=== PATIENT | male | born 1955 | race Caucasian/White ===

== ENCOUNTER 2016-08-18 10:55 | Inpatient (IN) | payer OTHER ==
[2016-08-18 12:30] VITALS: BMI 26.9
[2016-08-18] MEDS ORDERED: MAGNESIUM CITRATE 300 ML BOTTLE PO PRN (14:58)
[2016-08-18] MEDS ORDERED: guaiFENesin/D-METHORPHAN HB 10 ML UNIT-DOSE CUPS PO PRN (14:58)
[2016-08-18] MEDS ORDERED: MENTHOL/PHENOL 1 EACH UD MM PRN (14:58)
[2016-08-18] MEDS ORDERED: NICOTINE POLACRILEX 4 MG GUM BUC PRN (14:58)
[2016-08-18] MEDS ORDERED: MAG HYDROX/AL HYDROX/SIMETH 30 ML UNIT-DOSE CUP PO PRN (14:58)
[2016-08-18] MEDS ORDERED: MAGNESIUM HYDROX 2400MG/30ML ORAL SUSPENSION 30 ML CUP PO PRN (14:58)
[2016-08-18] MEDS ORDERED: P-EPHED 60MG/TRIPROLIDI 2.5MG TABLET PO PRN (14:58)
[2016-08-18] MEDS ORDERED: IBUPROFEN 400 MG TABLET (FP) PO PRN (14:58)
[2016-08-18] MEDS ORDERED: LOPERAMIDE HCL 2 MG CAPSULE PO PRN (14:58)
[2016-08-18] MEDS ORDERED: ACETAMINOPHEN 325 MG TABLET (FP) PO PRN (14:58)
--- NOTE | 2016-08-18 14:58 | HP ---
ANDREAS HERNANDEZ Rehab Assess/Revision - Admission History Admitted to Rehab from: [facility] [place] Date of Admission to Rehab: 08/18/16 - Vital signs Vital Signs: Vital Signs Period Temp Pulse Resp BP Sys/Umanzor Pulse Ox Last 24 Hr 96.1 F 70 20 137/77 - Findings Detox History & Physical reviewed: Yes (h/o rt hip OA , htn, svt , nicotine dep) Concur with findings: Yes Comments/Additional Findings: pt d/c'ed on 08/13/16.
[2016-08-18] MEDS ORDERED: LIDOCAINE 5% TOPICAL PATCH TP ONE (16:30)
[2016-08-18] MEDS: IBUPROFEN 600 MG TABLET (FP) PO PRN (19:37)
[2016-08-18] MEDS: CYCLOBENZAPRINE HCL 10 MG TABLET (FP) PO PRN (19:38)
[2016-08-18] MEDS: THIAMINE HCL 100 MG TABLET (FP) PO SCH (23:12)
--- NOTE | 2016-08-19 08:01 | HP ---
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 Noted history of bilateral inguinal hernia repair and splenectomy due to trauma. Smokes 5 cigarettes daily Psychiatric History: Denies previous psychiatric history but reports being treated with Valium for anxiety and insomnia while in inpatient rehab in the past. Physical/Sexual Abuse/Trauma History: Denies history of physical, sexual abuse as well as DV relationship Additional Comment: Reports history of multiple arrests including 6 felony convictions. Denies being on parole/probation at present Vital Signs: Vital Signs - 24 hr 08/18/16 08/19/16 08/19/16 12:22 00:30 06:54 Temperature 96.1 F L 98.3 F Pulse Rate 70 73 Respiratory 20 20 18 Rate Blood Pressure 137/77 146/95 Allergies/Adverse Reactions: Allergies Allergy/AdvReac Type Severity Reaction Status Date / Time No Known Allergies Allergy Verified 08/18/16 14:48 Date of last physical exam: 08/13/16 Concur with the findings of this exam: Yes - Substance Abuse/Tx History Hx Alcohol Use: Yes Hx Substance Use: Yes Substance Use Type: Alcohol (Started drinking alcohol at age 14, consumes half pint of vodka & 2 cans of beer daily. Last drink on 08/18/16), Cocaine (Started using cocaine at age 35, consumes $50 worth 1-2 times weekly. Last used on ) Hx Substance Use Treatment: Yes (Multiple previous inpt detox @ [facility] & rehab @ [facility]) - Admission Criteria Previous failed treatment: Yes Poor recovery environment: Yes Comorbidities: Yes Lacks judgement: Yes Mental Status Exam - Mental Status Exam Alert and Oriented to: Time, Place, Person Cognitive Function: Fair Patient Appearance: Disheveled Mood: Depressed, Irritable Affect: Constricted Patient Behavior: Cooperative Speech Pattern: Clear Voice Loudness: Normal Thought Process: Intact Thought Disorder: Present Hallucinations: Denies Suicidal Ideation: Denies Homicidal Ideation: Denies Insight/Judgement: Fair Sleep: Poorly Appetite: Good Muscle strength/Tone: Normal Gait/Station: Normal Psychiatric Findings - Problem List ([place] 1, 2,3) (1) Alcohol dependence with uncomplicated withdrawal Current Visit: No Status: Chronic (2) Cocaine dependence, uncomplicated Current Visit: No Status: Acute (3) Nicotine dependence Current Visit: No Status: Chronic Qualifiers: Nicotine product type: cigarettes Substance use status: uncomplicated Qualified Code(s): F17.210 - Nicotine dependence, cigarettes, uncomplicated (4) Substance induced mood disorder Current Visit: Yes Status: Acute (5) Atrial fibrillation with rapid ventricular response Current Visit: No Status: Acute (6) Essential hypertension Current Visit: No Status: Chronic (7) Hip pain, right Current Visit: No Status: Chronic (8) Hepatitis C Current Visit: Yes Status: Acute Qualifiers: Viral hepatitis chronicity: chronic Hepatic coma status: without hepatic coma Qualified Code(s): B18.2 - Chronic viral hepatitis C - Initial Treatment Plan Initial Treatment Plan: 1) Start Trazadone 100 mg po HS. 2) Monitor progress
[2016-08-19] MEDS: LIDOCAINE 5% TOPICAL PATCH TP SCH (09:51)
[2016-08-19] MEDS: PRENATAL VITAMINS W/ FOLIC ACID TABLET (FP) PO SCH (09:51)
[2016-08-19] MEDS: CYCLOBENZAPRINE HCL 10 MG TABLET (FP) PO PRN ×2 (14:19→21:26)
[2016-08-19] MEDS: IBUPROFEN 600 MG TABLET (FP) PO PRN (14:19)
[2016-08-19] MEDS: traZODone HCL 100 MG TABLET (FP) PO SCH (21:26)
[2016-08-19] MEDS: THIAMINE HCL 100 MG TABLET (FP) PO SCH (21:26)
[2016-08-20] MEDS: PRENATAL VITAMINS W/ FOLIC ACID TABLET (FP) PO SCH (10:12)
[2016-08-20] MEDS: CYCLOBENZAPRINE HCL 10 MG TABLET (FP) PO PRN ×2 (10:13→21:33)
[2016-08-20] MEDS: IBUPROFEN 600 MG TABLET (FP) PO PRN ×2 (10:13→21:33)
[2016-08-20] MEDS: LIDOCAINE 5% TOPICAL PATCH TP SCH (10:14)
[2016-08-20] MEDS: THIAMINE HCL 100 MG TABLET (FP) PO SCH (21:33)
[2016-08-20] MEDS: traZODone HCL 100 MG TABLET (FP) PO SCH (21:34)
[2016-08-21] MEDS: IBUPROFEN 600 MG TABLET (FP) PO PRN ×2 (10:19→21:36)
[2016-08-21] MEDS: CYCLOBENZAPRINE HCL 10 MG TABLET (FP) PO PRN ×2 (10:19→21:36)
[2016-08-21] MEDS: PRENATAL VITAMINS W/ FOLIC ACID TABLET (FP) PO SCH (10:21)
[2016-08-21] MEDS: LIDOCAINE 5% TOPICAL PATCH TP SCH (10:21)
[2016-08-21] MEDS: THIAMINE HCL 100 MG TABLET (FP) PO SCH (21:36)
[2016-08-21] MEDS: traZODone HCL 100 MG TABLET (FP) PO SCH (21:36)
[2016-08-22] MEDS: PRENATAL VITAMINS W/ FOLIC ACID TABLET (FP) PO SCH (10:23)
[2016-08-22] MEDS: LIDOCAINE 5% TOPICAL PATCH TP SCH (10:23)
[2016-08-22] MEDS: CYCLOBENZAPRINE HCL 10 MG TABLET (FP) PO PRN ×2 (10:24→21:24)
[2016-08-22] MEDS: IBUPROFEN 600 MG TABLET (FP) PO PRN ×2 (10:25→21:24)
[2016-08-22] MEDS: THIAMINE HCL 100 MG TABLET (FP) PO SCH (21:22)
[2016-08-22] MEDS: traZODone HCL 100 MG TABLET (FP) PO SCH (21:22)
[2016-08-23] MEDS: IBUPROFEN 600 MG TABLET (FP) PO PRN ×2 (10:11→21:43)
[2016-08-23] MEDS: PRENATAL VITAMINS W/ FOLIC ACID TABLET (FP) PO SCH (10:11)
[2016-08-23] MEDS: LIDOCAINE 5% TOPICAL PATCH TP SCH (10:11)
[2016-08-23] MEDS: CYCLOBENZAPRINE HCL 10 MG TABLET (FP) PO PRN ×2 (10:12→21:43)
[2016-08-23] MEDS: traZODone HCL 100 MG TABLET (FP) PO SCH (21:42)
[2016-08-23] MEDS: THIAMINE HCL 100 MG TABLET (FP) PO SCH (21:42)
[2016-08-24] MEDS: PRENATAL VITAMINS W/ FOLIC ACID TABLET (FP) PO SCH (10:04)
[2016-08-24] MEDS: IBUPROFEN 600 MG TABLET (FP) PO PRN ×2 (10:05→21:31)
[2016-08-24] MEDS: LIDOCAINE 5% TOPICAL PATCH TP SCH (10:05)
[2016-08-24] MEDS: CYCLOBENZAPRINE HCL 10 MG TABLET (FP) PO PRN ×2 (10:06→21:31)
[2016-08-24] MEDS: THIAMINE HCL 100 MG TABLET (FP) PO SCH (21:31)
[2016-08-24] MEDS: diphenhydrAMINE HCL 50 MG CAPSULE PO PRN (21:31)
[2016-08-24] MEDS: traZODone HCL 100 MG TABLET (FP) PO SCH (21:31)
[2016-08-25] MEDS: PRENATAL VITAMINS W/ FOLIC ACID TABLET (FP) PO SCH (10:18)
[2016-08-25] MEDS: IBUPROFEN 600 MG TABLET (FP) PO PRN ×2 (10:19→21:36)
[2016-08-25] MEDS: CYCLOBENZAPRINE HCL 10 MG TABLET (FP) PO PRN ×2 (10:19→21:35)
[2016-08-25] MEDS: LIDOCAINE 5% TOPICAL PATCH TP SCH (10:19)
[2016-08-25] MEDS: THIAMINE HCL 100 MG TABLET (FP) PO SCH (21:35)
[2016-08-25] MEDS: traZODone HCL 100 MG TABLET (FP) PO SCH (21:36)
[2016-08-25] MEDS: diphenhydrAMINE HCL 50 MG CAPSULE PO PRN (21:36)
[2016-08-26] MEDS: IBUPROFEN 600 MG TABLET (FP) PO PRN ×2 (10:17→21:50)
[2016-08-26] MEDS: CYCLOBENZAPRINE HCL 10 MG TABLET (FP) PO PRN ×2 (10:17→21:49)
[2016-08-26] MEDS: LIDOCAINE 5% TOPICAL PATCH TP SCH (10:18)
[2016-08-26] MEDS: PRENATAL VITAMINS W/ FOLIC ACID TABLET (FP) PO SCH (10:19)
[2016-08-26] MEDS: diphenhydrAMINE HCL 50 MG CAPSULE PO PRN (21:49)
[2016-08-26] MEDS: THIAMINE HCL 100 MG TABLET (FP) PO SCH (21:49)
[2016-08-26] MEDS: traZODone HCL 100 MG TABLET (FP) PO SCH (21:49)
[2016-08-27] MEDS: CYCLOBENZAPRINE HCL 10 MG TABLET (FP) PO PRN ×2 (10:25→21:28)
[2016-08-27] MEDS: IBUPROFEN 600 MG TABLET (FP) PO PRN ×2 (10:25→21:28)
[2016-08-27] MEDS: PRENATAL VITAMINS W/ FOLIC ACID TABLET (FP) PO SCH (10:25)
[2016-08-27] MEDS: LIDOCAINE 5% TOPICAL PATCH TP SCH (10:26)
[2016-08-27] MEDS: THIAMINE HCL 100 MG TABLET (FP) PO SCH (21:27)
[2016-08-27] MEDS: traZODone HCL 100 MG TABLET (FP) PO SCH (21:27)
[2016-08-27] MEDS: diphenhydrAMINE HCL 50 MG CAPSULE PO PRN (21:28)
[2016-08-28] MEDS: PRENATAL VITAMINS W/ FOLIC ACID TABLET (FP) PO SCH (10:20)
[2016-08-28] MEDS: IBUPROFEN 600 MG TABLET (FP) PO PRN (10:21)
[2016-08-28] MEDS: CYCLOBENZAPRINE HCL 10 MG TABLET (FP) PO PRN ×2 (10:21→21:46)
[2016-08-28] MEDS: LIDOCAINE 5% TOPICAL PATCH TP SCH (11:21)
[2016-08-28] MEDS: THIAMINE HCL 100 MG TABLET (FP) PO SCH (21:45)
[2016-08-28] MEDS: diphenhydrAMINE HCL 50 MG CAPSULE PO PRN (21:45)
[2016-08-28] MEDS: traZODone HCL 100 MG TABLET (FP) PO SCH (21:45)
[2016-08-29] MEDS: LIDOCAINE 5% TOPICAL PATCH TP SCH (11:04)
[2016-08-29] MEDS: PRENATAL VITAMINS W/ FOLIC ACID TABLET (FP) PO SCH (11:04)
[2016-08-29] MEDS: CYCLOBENZAPRINE HCL 10 MG TABLET (FP) PO PRN ×2 (11:06→21:27)
[2016-08-29] MEDS: IBUPROFEN 600 MG TABLET (FP) PO PRN ×2 (11:07→21:28)
[2016-08-29] MEDS: THIAMINE HCL 100 MG TABLET (FP) PO SCH (21:27)
[2016-08-29] MEDS: traZODone HCL 100 MG TABLET (FP) PO SCH (21:28)
[2016-08-29] MEDS: diphenhydrAMINE HCL 50 MG CAPSULE PO PRN (21:28)
[2016-08-30] MEDS: PRENATAL VITAMINS W/ FOLIC ACID TABLET (FP) PO SCH (10:18)
[2016-08-30] MEDS: LIDOCAINE 5% TOPICAL PATCH TP SCH (10:18)
[2016-08-30] MEDS: IBUPROFEN 600 MG TABLET (FP) PO PRN ×2 (10:19→21:29)
[2016-08-30] MEDS: CYCLOBENZAPRINE HCL 10 MG TABLET (FP) PO PRN (21:28)
[2016-08-30] MEDS: THIAMINE HCL 100 MG TABLET (FP) PO SCH (21:28)
[2016-08-30] MEDS: diphenhydrAMINE HCL 50 MG CAPSULE PO PRN (21:29)
[2016-08-30] MEDS: traZODone HCL 100 MG TABLET (FP) PO SCH (21:29)
[2016-08-31] MEDS: PRENATAL VITAMINS W/ FOLIC ACID TABLET (FP) PO SCH (10:15)
[2016-08-31] MEDS: CYCLOBENZAPRINE HCL 10 MG TABLET (FP) PO PRN ×2 (10:16→21:37)
[2016-08-31] MEDS: IBUPROFEN 600 MG TABLET (FP) PO PRN ×2 (10:16→21:37)
[2016-08-31] MEDS: LIDOCAINE 5% TOPICAL PATCH TP SCH (10:55)
[2016-08-31] MEDS: traZODone HCL 100 MG TABLET (FP) PO SCH (21:35)
[2016-08-31] MEDS: THIAMINE HCL 100 MG TABLET (FP) PO SCH (21:35)
[2016-08-31] MEDS: diphenhydrAMINE HCL 50 MG CAPSULE PO PRN (21:35)
[2016-09-01] MEDS: IBUPROFEN 600 MG TABLET (FP) PO PRN ×2 (10:29→21:30)
[2016-09-01] MEDS: CYCLOBENZAPRINE HCL 10 MG TABLET (FP) PO PRN ×2 (10:29→21:30)
[2016-09-01] MEDS: LIDOCAINE 5% TOPICAL PATCH TP SCH (10:31)
[2016-09-01] MEDS: PRENATAL VITAMINS W/ FOLIC ACID TABLET (FP) PO SCH (10:31)
[2016-09-01] MEDS: THIAMINE HCL 100 MG TABLET (FP) PO SCH (21:28)
[2016-09-01] MEDS: traZODone HCL 100 MG TABLET (FP) PO SCH (21:29)
[2016-09-01] MEDS: diphenhydrAMINE HCL 50 MG CAPSULE PO PRN (21:29)
[2016-09-02] MEDS: CYCLOBENZAPRINE HCL 10 MG TABLET (FP) PO PRN ×2 (10:17→21:28)
[2016-09-02] MEDS: IBUPROFEN 600 MG TABLET (FP) PO PRN ×2 (10:17→21:29)
[2016-09-02] MEDS: PRENATAL VITAMINS W/ FOLIC ACID TABLET (FP) PO SCH (10:17)
[2016-09-02] MEDS: LIDOCAINE 5% TOPICAL PATCH TP SCH (11:02)
[2016-09-02] MEDS: THIAMINE HCL 100 MG TABLET (FP) PO SCH (21:28)
[2016-09-02] MEDS: diphenhydrAMINE HCL 50 MG CAPSULE PO PRN (21:28)
[2016-09-02] MEDS: traZODone HCL 100 MG TABLET (FP) PO SCH (21:29)
[2016-09-03] MEDS: PRENATAL VITAMINS W/ FOLIC ACID TABLET (FP) PO SCH (10:14)
[2016-09-03] MEDS: CYCLOBENZAPRINE HCL 10 MG TABLET (FP) PO PRN ×2 (10:14→22:10)
[2016-09-03] MEDS: IBUPROFEN 600 MG TABLET (FP) PO PRN ×2 (10:14→22:10)
[2016-09-03] MEDS: LIDOCAINE 5% TOPICAL PATCH TP SCH (10:15)
[2016-09-03] MEDS: THIAMINE HCL 100 MG TABLET (FP) PO SCH (22:09)
[2016-09-03] MEDS: traZODone HCL 100 MG TABLET (FP) PO SCH (22:09)
[2016-09-04] MEDS: IBUPROFEN 600 MG TABLET (FP) PO PRN ×2 (10:13→22:01)
[2016-09-04] MEDS: CYCLOBENZAPRINE HCL 10 MG TABLET (FP) PO PRN (10:13)
[2016-09-04] MEDS: PRENATAL VITAMINS W/ FOLIC ACID TABLET (FP) PO SCH (10:13)
[2016-09-04] MEDS: LIDOCAINE 5% TOPICAL PATCH TP SCH (10:14)
[2016-09-04] MEDS: traZODone HCL 100 MG TABLET (FP) PO SCH (22:01)
[2016-09-04] MEDS: THIAMINE HCL 100 MG TABLET (FP) PO SCH (22:01)
[2016-09-04] MEDS: diphenhydrAMINE HCL 50 MG CAPSULE PO PRN (22:02)
[2016-09-05] MEDS: IBUPROFEN 600 MG TABLET (FP) PO PRN ×2 (10:17→22:02)
[2016-09-05] MEDS: CYCLOBENZAPRINE HCL 10 MG TABLET (FP) PO PRN ×2 (10:17→22:02)
[2016-09-05] MEDS: LIDOCAINE 5% TOPICAL PATCH TP SCH (10:18)
[2016-09-05] MEDS: PRENATAL VITAMINS W/ FOLIC ACID TABLET (FP) PO SCH (10:18)
[2016-09-05] MEDS: THIAMINE HCL 100 MG TABLET (FP) PO SCH (22:01)
[2016-09-05] MEDS: traZODone HCL 100 MG TABLET (FP) PO SCH (22:02)
[2016-09-05] MEDS: diphenhydrAMINE HCL 50 MG CAPSULE PO PRN (22:02)
[2016-09-06] MEDS: PRENATAL VITAMINS W/ FOLIC ACID TABLET (FP) PO SCH (10:09)
[2016-09-06] MEDS: LIDOCAINE 5% TOPICAL PATCH TP SCH (10:09)
[2016-09-06] MEDS: IBUPROFEN 600 MG TABLET (FP) PO PRN ×2 (10:10→21:49)
[2016-09-06] MEDS: CYCLOBENZAPRINE HCL 10 MG TABLET (FP) PO PRN ×2 (10:10→21:49)
[2016-09-06] MEDS: diphenhydrAMINE HCL 50 MG CAPSULE PO PRN (21:48)
[2016-09-06] MEDS: THIAMINE HCL 100 MG TABLET (FP) PO SCH (21:48)
[2016-09-06] MEDS: traZODone HCL 100 MG TABLET (FP) PO SCH (21:48)
--- NOTE | 2016-09-07 06:56 | PN ---
Psychiatric Progress Note Vital Signs: Vital Signs Period Temp Pulse Resp BP Sys/Umanzor Pulse Ox Last 24 Hr 97.6 F 62 18-18 147/89 Date of Session: 09/07/16 Chief Complaint:: Psychiatrist Discharge Note HPI: Patient addressing Alcohol and Cocaine Dependence comorbid with Nicotine Dependence and Substance-Induced Mood Disorder ROS: HTN, Osteoarthritis right hip were medically managed Current Medications: Active Medications Generic Name Dose Route Start Last Admin Trade Name Freq PRN Reason Stop Dose Admin Acetaminophen 650 mg 08/18/16 14:58 Tylenol - PO Q4H PRN FEVER OR PAIN Al Hydroxide/Mg Hydroxide 30 ml 08/18/16 14:58 Mylanta Oral Suspension - PO Q6H PRN DYSPEPSIA Cyclobenzaprine HCl 10 mg 08/18/16 15:04 09/06/16 21:49 Flexeril - PO 10 mg TID PRN Administration MUSCLE SPASMS Diphenhydramine HCl 50 mg 08/18/16 14:58 09/06/16 21:48 Benadryl - PO 50 mg HSMR1 PRN Administration FOR ITCHING Eucalyptus/Menthol/Phenol/Sorbitol 1 each 08/18/16 14:58 Cepastat Lozenge - MM Q4H PRN SORE THROAT Guaifenesin 10 ml 08/18/16 14:58 Robitussin Dm - PO Q6H PRN COUGH Ibuprofen 600 mg 08/18/16 15:04 09/06/16 21:49 Motrin - PO 600 mg Q6H PRN Administration PAIN Lidocaine 1 patch 08/19/16 10:00 09/06/16 10:09 Lidoderm Patch - TP Not Given DAILY ANTELMO Loperamide HCl 4 mg 08/18/16 14:58 Imodium - PO Q6H PRN DIARRHEA Magnesium Hydroxide 30 ml 08/18/16 14:58 Milk Of Magnesia - PO DAILY PRN CONSTIPATION Nicotine Polacrilex 4 mg 08/18/16 14:58 Nicorette Gum - BUC Q2H PRN NICOTINE REPLACEMENT RX Multivit/Folic Acid/Iron 1 tab 08/19/16 10:00 09/06/16 10:09 Vitamins (Sjr) - PO 1 tab DAILY ANTELMO Administration Pseudoephedrine/Triprolidine 1 combo 08/18/16 14:58 Actifed - PO TID PRN NASAL CONGESTION Thiamine HCl 100 mg 08/18/16 22:00 09/06/16 21:48 Vitamin B1 - PO 100 mg HS ANTELMO Administration Trazodone HCl 100 mg 08/19/16 22:00 09/06/16 21:48 Desyrel - PO 100 mg HS ANTELMO Administration Current Side Effect: No Lab tests ordered: Yes Lab tests reviewed: Yes Provider note:: Patient has completed this program today. He has met his treatment goals and will continue to address his issues in outpatient treatment at [facility]. He verbalized understanding of the negative consequences of his addiction and from his participation in this program, he has learned the importance of having a network in order to maintain abstinent. He responded well to Trazadone 100 mg po HS for insomnia. Script for 30 days supply of that medication is electronically transmitted to [facility] at [address] [place] [address]. He is stable for discharge today Total face to face time:: 35 Mental Status Exam - Mental Status Exam Alert and Oriented to: Time, Place, Person Cognitive Function: Fair Patient Appearance: Well Groomed Mood: Hopeful, Euthymic Affect: Appropriate Patient Behavior: Cooperative Speech Pattern: Clear Voice Loudness: Normal Thought Process: Intact Thought Disorder: Not Present Hallucinations: Denies Suicidal Ideation: Denies Homicidal Ideation: Denies Insight/Judgement: Fair Sleep: Fair Appetite: Good Muscle strength/Tone: Normal Gait/Station: Normal Psychiatric Treatment Plan - Problem List (1) Alcohol dependence with uncomplicated withdrawal Current Visit: No (2) Cocaine dependence, uncomplicated Current Visit: No (3) Nicotine dependence Current Visit: No Qualifiers: Nicotine product type: cigarettes Substance use status: uncomplicated Qualified Code(s): F17.210 - Nicotine dependence, cigarettes, uncomplicated (4) Substance induced mood disorder Current Visit: Yes (5) Atrial fibrillation with rapid ventricular response Current Visit: No (6) Essential hypertension Current Visit: No (7) Hip pain, right Current Visit: No (8) Hepatitis C Current Visit: Yes Qualifiers: Viral hepatitis chronicity: chronic Hepatic coma status: without hepatic coma Qualified Code(s): B18.2 - Chronic viral hepatitis C Initial treatment plan: Patient is discharged today and referred to [facility] for outpatient treatment
[2016-09-07 07:14] VITALS: BP 171/100; PULSE 69; TEMP 98.5
[2016-09-07] MEDS: LIDOCAINE 5% TOPICAL PATCH TP SCH (10:01)
[2016-09-07] MEDS: PRENATAL VITAMINS W/ FOLIC ACID TABLET (FP) PO SCH (10:01)
[2016-09-07] MEDS: IBUPROFEN 600 MG TABLET (FP) PO PRN (10:02)
[2016-09-07] MEDS: CYCLOBENZAPRINE HCL 10 MG TABLET (FP) PO PRN (10:02)
== END 2016-09-07 10:15 | disposition home or self-care (01) | DRG 772 ==
LOC: YASAS 10:55 → Y3W 15:13
PROVIDERS: ADMIT Psychiatry & Neurology Psychiatry; ATTEND Psychiatry & Neurology Psychiatry
PROC: HZ42ZZZ Group Counseling for Substance Abuse Treatment, Cognitive-Behavioral (ICD-10-PCS; principal; 2016-08-18)
DX: F10.20 Alcohol dependence, uncomplicated (principal); F14.20 Cocaine dependence, uncomplicated; F17.210 Nicotine dependence, cigarettes, uncomplicated; F19.24 Other psychoactive substance dependence with psychoactive substance-induced mood disorder; I10 Essential (primary) hypertension; M16.11 Unilateral primary osteoarthritis, right hip; I48.91 Unspecified atrial fibrillation; B18.2 Chronic viral hepatitis C; I47.1 Supraventricular tachycardia
CPT/HCPCS: 93005; 93010

== ENCOUNTER 2017-10-31 12:30 | Inpatient (IN) | payer OTHER ==
[2017-10-31 14:32] VITALS: BMI 30.3
--- NOTE | 2017-10-31 16:00 | HP ---
CIWA Score - CIWA Score Nausea/Vomitin Muscle Tremors: 3 Anxiety: 3 Agitation: 3 Paroxysmal Sweats: 2 Orientation: 0-Oriented Tacttile Disturbances: 2-Mild Itch/Numbness/Burn Auditory Disturbances: 2-Mild Harshness/Frighten Visual Disturbances: 1-Very Mild Sensitivity Headache: 2-Mild CIWA-Ar Total Score: 21 Admission ROS BHS - HPI Chief Complaint: I NEED HELP SO TOP DRINKING ALCOHOL Allergies/Adverse Reactions: Allergies Allergy/AdvReac Type Severity Reaction Status Date / Time No Known Allergies Allergy Verified 10/31/17 17:22 History of Present Illness: THIS 62 YEARS OLD MALE WITH ALCOHOL DEPENDENCE,WITHDRAWAL FROM ALCOHOL,SEEKING DETOX,LAST TREATMENT IN 09/01 [facility] HTN,PAIN IN RIGHT HIP ,ARTHRITIS PENDING ON HIP REPLACEMENT LOW BACK PAIN HERNIATED DISC MULTIPLE ADMISSIONS IN THE PAST NICOTINE DEPENDENCE ANXIETY,DEPRESSION,INSOMNIA - Ebola screening Have you traveled outside of the country in the last 21 days: No (N) Have you had contact with anyone from an Ebola affected area: No Have you been sick,other than usual withdrawal symptoms: No Do you have a fever: No - Review of Systems Constitutional: Loss of Appetite, Malaise, Night Sweats, Changes in sleep, Weakness, Unintentional Wgt. Loss EENT: reports: Nose Congestion Respiratory: reports: No Symptoms reported Cardiac: reports: No Symptoms Reported GI: reports: Diarrhea, Nausea, Vomiting, Abdominal cramping : reports: No Symptoms Reported Musculoskeletal: reports: Back Pain, Joint Pain, Muscle Pain, Joint Stiffness ( ARTHRITIS OF RIGH THIP) Neuro: reports: Tremors Endocrine: reports: No Symptoms Reported Hematology: reports: No Symptoms Reported Psychiatric: reports: No Sypmtoms Reported, Judgement Intact, Mood/Affect Appropiate, Orientated x3, Agitated, Depressed Patient History - Patient Medical History Hx Anemia: No Hx Asthma: No Hx Chronic Obstructive Pulmonary Disease (COPD): No Hx Cancer: No Hx Cardiac Disorders: No Hx Congestive Heart Failure: No Hx Hypertension: Yes (ON MED) Hx Hypercholesterolemia: No Hx Pacemaker: No HX Cerebrovascular Accident: No Hx Seizures: No Hx Dementia: No Hx Diabetes: No Hx Gastrointestinal Disorders: No Hx Liver Disease: No Hx Genitourinary Disorders: No Hx Sexually Transmitted Disorders: No Hx Renal Disease (ESRD): No Hx Thyroid Disease: No Hx Human Immunodeficiency Virus (HIV): No (LAST 2016 NEGATIVE) Hx Hepatitis C: Yes Hx Depression: Yes (ANXIETY,INSOMNIA) Hx Suicide Attempt: No Hx Bipolar Disorder: No Hx Schizophrenia: No Other Medical History: NO SUICDAL,NO HOMICIDAL - Patient Surgical History Past Surgical History: Yes Hx Neurologic Surgery: No Hx Cataract Extraction: No Hx Cardiac Surgery: No Hx Lung Surgery: No Hx Breast Surgery: No Hx Breast Biopsy: No Hx Abdominal Surgery: Yes (splenectomy IN 2000) Hx Appendectomy: No Hx Cholecystectomy: No Hx Genitourinary Surgery: No Hx Section: No Hx Orthopedic Surgery: No Other Surgical History: SPLEENECTOMY 2001 TRAUMA,BOTH INGUINAL HERNIA IN 2011 [facility] Anesthesia Reaction: No - PPD History Previous Implant?: Yes Documented Results: Negative w/o proof Implanted On Prior [facility] Admission?: Yes Date: 09/03/15 Results: 0MM PPD to be Administered?: Yes - Smoking Cessation Smoking history: Current every day smoker Have you smoked in the past 12 months: Yes Aproximately how many cigarettes per day: 4 Cigars Per Day: 0 Hx Chewing Tobacco Use: No Initiated information on smoking cessation: Yes 'Breaking Loose' booklet given: 10/31/17 - Substance & Tx. History Hx Alcohol Use: Yes Hx Substance Use: Yes Substance Use Type: Alcohol, Cocaine Hx Substance Use Treatment: Yes ([facility] 09/01) - Substances Abused Alcohol Route: Oral Frequency: 1-3 times last 30 days Amount used: 1PINT OF VODKA/6 PACKS OF 12 OZS OF BEER Age of first use: 15 Date of Last Use: 10/31/17 Cocaine Route: Inhalation Frequency: 1-2 times per week Amount used: 1 GRAM Age of first use: 26 Date of Last Use: 10/31/17 Family Disease History - Family Disease History Family Disease History: Diabetes: Mother (HTN,ALCOHOL), Heart Disease: Father ( HTN,ALCOHOL), Mother, CA: Sister (BRAIN), Other: Mother, Brother (DRUG/ALCOHOL) Admission Physical Exam S - Vital Signs Vital Signs: Vital Signs - 24 hr 10/31/17 14:29 Temperature 97 F L Pulse Rate 96 H Respiratory 20 Rate Blood Pressure 165/84 - Physical General Appearance: Yes: Moderate Distress, Tremorous, Irritable, Sweating, Anxious HEENTM: Yes: Normal ENT Inspection, GHAZALA, Pharynx Normal Respiratory: Yes: Lungs Clear, Normal Breath Sounds, No Respiratory Distress Neck: Yes: Within Normal Limits, Supple, Trachea in good position Breast: Yes: Within Normal Limits Cardiology: Yes: Within Normal Limits, Regular Rhythm, Regular Rate, S1, S2 Abdominal: Yes: Within Normal Limits, Normal Bowel Sounds, Non Tender, Flat, Soft, Surgical Scar (S/P SPLENECTOMY AND INGUINAL HERNIA BILATERL) Genitourinary: Yes: Within Normal Limits Back: Yes: Within Normal Limits Musculoskeletal: Yes: Back pain, Muscle Pain (RIGHT HIP ARTHRITIS) Extremities: Yes: Tremors Neurological: Yes: material hauler II-XII NML intact, Alert, Motor Strength 5/5 Integumentary: Yes: Dry Lymphatic: Yes: Within Normal Limits - Diagnostic (1) Alcohol dependence with uncomplicated withdrawal Current Visit: No Status: Chronic (2) Cocaine dependence, uncomplicated Current Visit: No Status: Acute (3) Hepatitis C Current Visit: No Status: Acute Qualifiers: Viral hepatitis chronicity: chronic Hepatic coma status: without hepatic coma Qualified Code(s): B18.2 - Chronic viral hepatitis C (4) Weight decreased Current Visit: No Status: Acute (5) Arthritis of right hip Current Visit: No Status: Chronic (6) Essential hypertension Current Visit: No Status: Chronic (7) Syncope Current Visit: No Status: Suspected (8) Anxiety and depression Current Visit: Yes Status: Acute (9) Insomnia secondary to depression with anxiety Current Visit: Yes Status: Acute (10) History of atrial fibrillation Current Visit: Yes Status: Acute Cleared for Admission [facility] - Detox or Rehab [facility] Level of Care: Medically Managed Detox Regimen/Protocol: Librium S Breath Alcohol Content Breath Alcohol Content: 0 Urine Drug Screen - Results Drug Screen Negative: No Urine Drug Screen Results: PIYUSH-Cocaine, BZO-Benzodiazepines
[2017-10-31] MEDS ORDERED: IBUPROFEN 400 MG TABLET (FP) PO PRN (16:28)
[2017-10-31] MEDS ORDERED: MAGNESIUM HYDROX 2400MG/30ML ORAL SUSPENSION 30 ML CUP PO PRN (16:28)
[2017-10-31] MEDS ORDERED: LOPERAMIDE HCL 2 MG CAPSULE PO PRN (16:28)
[2017-10-31] MEDS ORDERED: MAGNESIUM CITRATE 300 ML BOTTLE PO PRN (16:28)
[2017-10-31] MEDS ORDERED: MENTHOL/PHENOL 1 EACH UD MM PRN (16:28)
[2017-10-31] MEDS ORDERED: hydrOXYzine PAMOATE 50 MG CAPSULE (FP) PO PRN (16:28)
[2017-10-31] MEDS ORDERED: chlordiazePOXIDE HCL 25 MG CAPSULE PO PRN (16:28)
[2017-10-31] MEDS ORDERED: MAG HYDROX/AL HYDROX/SIMETH 30 ML UNIT-DOSE CUP PO PRN (16:28)
[2017-10-31] MEDS ORDERED: P-EPHED 60MG/TRIPROLIDI 2.5MG TABLET PO PRN (16:28)
[2017-10-31] MEDS ORDERED: guaiFENesin/D-METHORPHAN HB 10 ML UNIT-DOSE CUPS PO PRN (16:28)
[2017-10-31] MEDS ORDERED: ACETAMINOPHEN 325 MG TABLET (FP) PO PRN (16:28)
[2017-10-31] MEDS ORDERED: chlordiazePOXIDE HCL 25 MG CAPSULE PO ONE (16:45)
[2017-10-31] MEDS: THIAMINE HCL 100 MG TABLET (FP) PO SCH (22:35)
[2017-10-31] MEDS: ATORVASTATIN CA 40 MG TABLET (FP) PO SCH (22:35)
[2017-10-31] MEDS: chlordiazePOXIDE HCL 25 MG CAPSULE PO SCH (22:37)
[2017-10-31 22:52] LABS: URINE APPEARANCE SLCLOUDY; URINE BILIRUBIN NEGATIVE (NEGATIVE); URINE BLOOD NEGATIVE (NEGATIVE); URINE COLOR AMBER; URINE GLUCOSE (UA) NEGATIVE (NEGATIVE); URINE KETONE NEGATIVE (NEGATIVE); URINE LEUK ESTERASE NEGATIVE (NEGATIVE); URINE NITRITE NEGATIVE (NEGATIVE); URINE UROBILINOGEN 4.0 E.U/dl mg/dL (0.2-1.0)
[2017-10-31 23:03] LABS: URINE PROTEIN 1+ (NEGATIVE)
[2017-10-31 23:07] LABS: EPI CELLS RARE /HPF (FEW); URINE BACTERIA RARE /hpf (NONE SEEN); URINE HYALINE CAST 42 /lpf; URINE MUCUS RARE
--- NOTE | 2017-10-31 23:50 | EKG ---
Test Reason : Blood Pressure : / mmHG Vent. Rate : 072 BPM Atrial Rate : 072 BPM P-R Int : 178 ms QRS Dur : 102 ms QT Int : 442 ms P-R-T Axes : 052 -40 060 degrees QTc Int : 483 ms NORMAL SINUS RHYTHM POSSIBLE LEFT ATRIAL ENLARGEMENT LEFT AXIS DEVIATION INCOMPLETE RIGHT BUNDLE BRANCH BLOCK LEFT VENTRICULAR HYPERTROPHY ANTEROSEPTAL INFARCT , AGE UNDETERMINED ABNORMAL ECG NO PREVIOUS ECGS AVAILABLE Confirmed by HUMA HERNANDEZ, CHAPARRO ([id number]) on 10/31/2017 11:49:59 PM Referred By: Confirmed By:CHAPARRO FINN MD
[2017-11-01] MEDS: chlordiazePOXIDE HCL 25 MG CAPSULE PO SCH ×4 (05:40→22:36)
[2017-11-01] MEDS ORDERED: amLODIPine BESYLATE 10 MG TABLET (FP) PO SCH (10:00)
[2017-11-01] MEDS ORDERED: ASPIRIN 81 MG CHEWABLE TABLETS PO SCH (10:00)
[2017-11-01 10:26] LABS: HEMATOCRIT 40.4 % (35.4-49); HEMOGLOBIN 13.6 GM/dL (11.7-16.9); MCH 32.8 pg (25.7-33.7); MCHC 33.6 g/dl (32.0-35.9); MEAN CELL VOLUME 97.7 fl (80-96); PLATELET COUNT 242 K/MM3 (134-434); RBC 4.13 M/mm3 (4.00-5.60); RDW 14.1 % (11.9-15.9); WHITE BLOOD COUNT 7.4 K/mm3 (4.0-10.0)
[2017-11-01 10:29] LABS: ALBUMIN 3.1 g/dl (3.4-5.0); ANION GAP 6 (8-16); BLOOD UREA NITROGEN 16 mg/dL (7-18); CALCIUM 8.3 mg/dL (8.5-10.1); CHLORIDE 105 mmol/L (98-107); CO2 27 mmol/L (21-32); GLUCOSE,RANDOM 113 mg/dL (74-106); POTASSIUM 4.1 mmol/L (3.5-5.1); SODIUM 138 mmol/L (136-145)
[2017-11-01] MEDS: VERAPAMIL HCL 120 MG E.R. TABLET PO SCH (10:31)
[2017-11-01] MEDS: ASPIRIN COATED 81 MG TABLET.EC PO SCH (10:31)
[2017-11-01] MEDS: amLODIPine BESYLATE 10 MG TABLET (FP) PO SCH (10:31)
[2017-11-01] MEDS: PRENATAL VITAMINS W/ FOLIC ACID TABLET (FP) PO SCH (10:31)
[2017-11-01 10:34] LABS: ALK PHOS 87 U/L (45-117); BILIRUBIN,TOTAL 0.8 mg/dL (0.2-1.0); CREATININE 0.9 mg/dL (0.7-1.3); SGOT/AST 92 U/L (15-37); SGPT/ALT 108 U/L (12-78); TOT PROT 6.7 g/dl (6.4-8.2)
--- NOTE | 2017-11-01 12:41 | PN ---
S CIWA - CIWA Score Nausea/Vomitin Muscle Tremors: 4-Moderate,w/Arms Extend Anxiety: 3 Agitation: 4-Moderately Restless Paroxysmal Sweats: 3 Orientation: 0-Oriented Tacttile Disturbances: 0-None Auditory Disturbances: 0-None Visual Disturbances: 0-None Headache: 0-None Present CIWA-Ar Total Score: 16 S Progress Note (SOAP) Subjective: sweats shakes Hip pain Objective: 11/01/17 12:35 A & O x 3 Ambulatory steadily Vital Signs Temperature 96.2 F L 11/01/17 09:22 Pulse Rate 70 11/01/17 09:22 Respiratory Rate 18 11/01/17 09:22 Blood Pressure 125/79 11/01/17 09:22 O2 Sat by Pulse Oximetry (%) Laboratory Last Values WBC 7.4 K/mm3 (4.0-10.0) 11/01/17 07:00 RBC 4.13 M/mm3 (4.00-5.60) 11/01/17 07:00 Hgb 13.6 GM/dL (11.7-16.9) 11/01/17 07:00 Hct 40.4 % (35.4-49) 11/01/17 07:00 MCV 97.7 fl (80-96) H 11/01/17 07:00 MCH 32.8 pg (25.7-33.7) 11/01/17 07:00 MCHC 33.6 g/dl (32.0-35.9) 11/01/17 07:00 RDW 14.1 % (11.9-15.9) 11/01/17 07:00 Plt Count 242 K/MM3 (134-434) 11/01/17 07:00 MPV 10.0 fl (7.5-11.1) 11/01/17 07:00 Sodium 138 mmol/L (136-145) 11/01/17 07:00 Potassium 4.1 mmol/L (3.5-5.1) 11/01/17 07:00 Chloride 105 mmol/L (98-107) 11/01/17 07:00 Carbon Dioxide 27 mmol/L (21-32) 11/01/17 07:00 Anion Gap 6 (8-16) L 11/01/17 07:00 BUN 16 mg/dL (7-18) D 11/01/17 07:00 Creatinine 0.9 mg/dL (0.7-1.3) 11/01/17 07:00 Creat Clearance w eGFR > 60 (>60) 11/01/17 07:00 Random Glucose 113 mg/dL (74-106) H D 11/01/17 07:00 Calcium 8.3 mg/dL (8.5-10.1) L 11/01/17 07:00 Total Bilirubin 0.8 mg/dL (0.2-1.0) D 11/01/17 07:00 AST 92 U/L (15-37) H D 11/01/17 07:00 ALT 108 U/L (12-78) H D 11/01/17 07:00 Alkaline Phosphatase 87 U/L (45-117) 11/01/17 07:00 Total Protein 6.7 g/dl (6.4-8.2) 11/01/17 07:00 Albumin 3.1 g/dl (3.4-5.0) L 11/01/17 07:00 Urine Color Anjelica 10/31/17 18:35 Urine Appearance Slcloudy 10/31/17 18:35 Urine pH 5.0 (5.0-8.0) 10/31/17 18:35 Ur Specific [place] 1.018 (1.001-1.035) 10/31/17 18:35 Urine Protein 1+ (NEGATIVE) H 10/31/17 18:35 Urine Glucose (UA) Negative (NEGATIVE) 10/31/17 18:35 Urine Ketones Negative (NEGATIVE) 10/31/17 18:35 Urine Blood Negative (NEGATIVE) 10/31/17 18:35 Urine Nitrite Negative (NEGATIVE) 10/31/17 18:35 Urine Bilirubin Negative (NEGATIVE) 10/31/17 18:35 Urine Urobilinogen 4.0 e.u/dl mg/dL (0.2-1.0) 10/31/17 18:35 Ur Leukocyte Esterase Negative (NEGATIVE) 10/31/17 18:35 Urine WBC (Auto) 6 /hpf (3-5) 10/31/17 18:35 Urine RBC (Auto) 12 /hpf (0-3) 10/31/17 18:35 Ur Epithelial Cells Rare /HPF (FEW) 10/31/17 18:35 Urine Bacteria Rare /hpf (NONE SEEN) 10/31/17 18:35 Hyaline Casts 42 /lpf 10/31/17 18:35 Urine Mucus Rare 10/31/17 18:35 RPR Titer Nonreactive (NONREACTIVE) 11/01/17 07:00 labs noted 11/01/17 12:42 Assessment: 11/01/17 12:41 withdrawal sx Dehydration Plan: continue detox Increase hydration
--- NOTE | 2017-11-01 14:09 | CONSULT ---
[facility] Psychiatric Consult - Data Date of interview: 11/01/17 Admission source: [facility] Identifying data: This is one of multiple admissions to [facility] for this 62 y/ o male, from [place] ancestry, seeking detox treatment,on ,for alcohol and cocaine dependence.Patient is single without children,unemployed, homeless (care home) and supported on food stamps. Substance Abuse History: Discussed with patient.Mr Urrutia admits to abusing alcohol since age 15 (consumes 1-2 pints of vodka daily + " a few beers) and a 40+ year history of cocaine dependence. Moer details in current [facility] report : Smoking history: Current every day smoker. Have you smoked in the past 12 months: Yes. Aproximately how many cigarettes per day: 4. Cigars Per Day: 0. Hx Chewing Tobacco Use: No. Initiated information on smoking cessation: Yes. ' Breaking Loose' booklet given: 10/31/17. - Substance & Tx. History. Hx Alcohol Use: Yes. Hx Substance Use: Yes. Substance Use Type: Alcohol, Cocaine. Hx Substance Use Treatment: Yes ([facility] 09/01). - Substances Abused. * * Alcohol. Route: Oral. Frequency: 1-3 times last 30 days. Amount used: 1PINT OF VODKA/6 PACKS OF 12 OZS OF BEER. Age of first use: 15. Date of Last Use: 10/31/17. Cocaine. Route: Inhalation. Frequency: 1-2 times per week. Amount used: 1 GRAM. Age of first use: 26. Date of Last Use: 10/31/17 Medical History: Hypertension,hepatitis C,arthritis of right hip,lower back and self-report of herniated discs (lumbar spine).Noted history of splenectomy and bilateral inguinal herniorraphy. Psychiatric History: Patient denies history of psychiatric hospitalizations or suicide attempts. Physical/Sexual Abuse/Trauma History: Patient denies history of sexual abuse.He reports a heavy history of incarcerations (15 consecutive years in a maximum security fdc + 12 years in local jails).Not on probation or parole. Additional Comment: Urine Drug Screen Results: PIYUSH-Cocaine, BZO- Benzodiazepines.Noted. Mental Status Exam - Mental Status Exam Alert and Oriented to: Time, Place, Person Cognitive Function: Good Patient Appearance: Unkempt, Disheveled Mood: Nervous, Withdrawn Affect: Mood Congruent, Constricted Patient Behavior: Fatigued, Cooperative (friendly on approach) Speech Pattern: Clear Voice Loudness: Normal Thought Process: Goal Oriented Thought Disorder: Not Present Hallucinations: Denies Suicidal Ideation: Denies Homicidal Ideation: Denies Insight/Judgement: Poor Sleep: Well Appetite: Good Gait/Station: Other (walks with a pronounced limp) Psychiatric Findings - Problem List ([place] 1, 2,3) (1) Alcohol dependence with uncomplicated withdrawal Current Visit: Yes Status: Acute (2) Cocaine dependence, uncomplicated Current Visit: Yes Status: Acute (3) Nicotine dependence Current Visit: Yes Status: Acute Qualifiers: Nicotine product type: cigarettes Substance use status: uncomplicated Qualified Code(s): F17.210 - Nicotine dependence, cigarettes, uncomplicated (4) Substance induced mood disorder Current Visit: Yes Status: Acute - Initial Treatment Plan Initial Treatment Plan: Psychoeducation.Sleep hygiene discussed in session.Detoxification in progress.Observation.
[2017-11-01] MEDS: ATORVASTATIN CA 40 MG TABLET (FP) PO SCH (21:27)
[2017-11-01] MEDS: THIAMINE HCL 100 MG TABLET (FP) PO SCH (21:27)
[2017-11-02] MEDS: chlordiazePOXIDE HCL 25 MG CAPSULE PO SCH ×3 (05:21→18:07)
[2017-11-02] MEDS ORDERED: cloNIDine HCL 0.1 MG TABLET PO ONE (06:14)
[2017-11-02] MEDS: amLODIPine BESYLATE 10 MG TABLET (FP) PO SCH (10:50)
[2017-11-02] MEDS: VERAPAMIL HCL 120 MG E.R. TABLET PO SCH (10:50)
[2017-11-02] MEDS: ASPIRIN COATED 81 MG TABLET.EC PO SCH (10:50)
[2017-11-02] MEDS: PRENATAL VITAMINS W/ FOLIC ACID TABLET (FP) PO SCH (10:50)
--- NOTE | 2017-11-02 12:35 | PN ---
S CIWA - CIWA Score Nausea/Vomitin-No Nausea/No Vomiting Muscle Tremors: 2 Anxiety: 5 Agitation: 3 Paroxysmal Sweats: 3 Orientation: 2-Disoriented Date<2 days Tacttile Disturbances: 3-Moderate Itch/Numb/Burn Auditory Disturbances: 0-None Visual Disturbances: 0-None Headache: 0-None Present CIWA-Ar Total Score: 18 BHS Progress Note (SOAP) Subjective: Interrupted Sleep, Anxious, Sweating. Objective: PATIENT A & O X 2 (UNCERTAIN ABOUT CURRENT DAY/ DATE). NO ACUTE DISTRESS. 11/02/17 12:28 Vital Signs Temperature 98.4 F 11/02/17 09:48 Pulse Rate 72 11/02/17 09:48 Respiratory Rate 18 11/02/17 09:48 Blood Pressure 119/78 11/02/17 09:48 O2 Sat by Pulse Oximetry (%) Laboratory Tests 10/31/17 11/01/17 11/01/17 18:35 07:00 07:00 WBC 7.4 RBC 4.13 Hgb 13.6 Hct 40.4 MCV 97.7 H MCH 32.8 MCHC 33.6 RDW 14.1 Plt Count 242 MPV 10.0 Sodium 138 Potassium 4.1 Chloride 105 Carbon Dioxide 27 Anion Gap 6 L BUN 16 D Creatinine 0.9 Creat Clearance w eGFR > 60 Random Glucose 113 H D Calcium 8.3 L Total Bilirubin 0.8 D AST 92 H D ALT 108 H D Alkaline Phosphatase 87 Total Protein 6.7 Albumin 3.1 L Urine Color Anjelica Urine Appearance Slcloudy Urine pH 5.0 Ur Specific [place] 1.018 Urine Protein 1+ H Urine Glucose (UA) Negative Urine Ketones Negative Urine Blood Negative Urine Nitrite Negative Urine Bilirubin Negative Urine Urobilinogen 4.0 e.u/dl Ur Leukocyte Esterase Negative Urine WBC (Auto) 6 Urine RBC (Auto) 12 Ur Epithelial Cells Rare Urine Bacteria Rare Hyaline Casts 42 Urine Mucus Rare RPR Titer 11/01/17 07:00 WBC RBC Hgb Hct MCV MCH MCHC RDW Plt Count MPV Sodium Potassium Chloride Carbon Dioxide Anion Gap BUN Creatinine Creat Clearance w eGFR Random Glucose Calcium Total Bilirubin AST ALT Alkaline Phosphatase Total Protein Albumin Urine Color Urine Appearance Urine pH Ur Specific [place] Urine Protein Urine Glucose (UA) Urine Ketones Urine Blood Urine Nitrite Urine Bilirubin Urine Urobilinogen Ur Leukocyte Esterase Urine WBC (Auto) Urine RBC (Auto) Ur Epithelial Cells Urine Bacteria Hyaline Casts Urine Mucus RPR Titer Nonreactive LABS NOTED. Assessment: 11/02/17 12:28 WITHDRAWAL SYMPTOMS. Plan: CONTINUE DETOX.
[2017-11-02] MEDS: ATORVASTATIN CA 40 MG TABLET (FP) PO SCH (22:21)
[2017-11-02] MEDS: THIAMINE HCL 100 MG TABLET (FP) PO SCH (22:21)
[2017-11-02] MEDS: chlordiazePOXIDE 5 MG CAPSULE PO SCH (22:21)
[2017-11-03] MEDS: chlordiazePOXIDE 5 MG CAPSULE PO SCH (05:20)
[2017-11-03 09:57] VITALS: BP 146/91; PULSE 66; TEMP 97.6
[2017-11-03] MEDS: PRENATAL VITAMINS W/ FOLIC ACID TABLET (FP) PO SCH (11:04)
[2017-11-03] MEDS: amLODIPine BESYLATE 10 MG TABLET (FP) PO SCH (11:04)
[2017-11-03] MEDS: ASPIRIN COATED 81 MG TABLET.EC PO SCH (11:04)
[2017-11-03] MEDS: VERAPAMIL HCL 120 MG E.R. TABLET PO SCH (11:04)
--- NOTE | 2017-11-03 11:46 | PN ---
[facility] Progress Note (SOAP) Subjective: Body Aches, Anxious, Interrupted Sleep. Objective: PATIENT A & O X 3, OBSERVED AMBULATING ON UNIT. NO ACUTE DISTRESS. 11/03/17 11:45 Vital Signs Temperature 97.6 F 11/03/17 09:56 Pulse Rate 66 11/03/17 09:56 Respiratory Rate 16 11/03/17 09:56 Blood Pressure 146/91 11/03/17 09:56 O2 Sat by Pulse Oximetry (%) Laboratory Tests 10/31/17 11/01/17 11/01/17 18:35 07:00 07:00 WBC 7.4 RBC 4.13 Hgb 13.6 Hct 40.4 MCV 97.7 H MCH 32.8 MCHC 33.6 RDW 14.1 Plt Count 242 MPV 10.0 Sodium 138 Potassium 4.1 Chloride 105 Carbon Dioxide 27 Anion Gap 6 L BUN 16 D Creatinine 0.9 Creat Clearance w eGFR > 60 Random Glucose 113 H D Calcium 8.3 L Total Bilirubin 0.8 D AST 92 H D ALT 108 H D Alkaline Phosphatase 87 Total Protein 6.7 Albumin 3.1 L Urine Color Anjelica Urine Appearance Slcloudy Urine pH 5.0 Ur Specific [place] 1.018 Urine Protein 1+ H Urine Glucose (UA) Negative Urine Ketones Negative Urine Blood Negative Urine Nitrite Negative Urine Bilirubin Negative Urine Urobilinogen 4.0 e.u/dl Ur Leukocyte Esterase Negative Urine WBC (Auto) 6 Urine RBC (Auto) 12 Ur Epithelial Cells Rare Urine Bacteria Rare Hyaline Casts 42 Urine Mucus Rare RPR Titer 11/01/17 07:00 WBC RBC Hgb Hct MCV MCH MCHC RDW Plt Count MPV Sodium Potassium Chloride Carbon Dioxide Anion Gap BUN Creatinine Creat Clearance w eGFR Random Glucose Calcium Total Bilirubin AST ALT Alkaline Phosphatase Total Protein Albumin Urine Color Urine Appearance Urine pH Ur Specific [place] Urine Protein Urine Glucose (UA) Urine Ketones Urine Blood Urine Nitrite Urine Bilirubin Urine Urobilinogen Ur Leukocyte Esterase Urine WBC (Auto) Urine RBC (Auto) Ur Epithelial Cells Urine Bacteria Hyaline Casts Urine Mucus RPR Titer Nonreactive LABS NOTED. Assessment: 11/03/17 11:45 WITHDRAWAL SYMPTOMS. Plan: CONTINUE DETOX.
--- NOTE | 2017-11-03 11:52 | DS ---
[facility] Detox Discharge Summary Admission Date: 10/31/17 Discharge Date: 11/03/17 - History Present History: Alcohol Dependence, Cocaine Dependence Additional Comments: PATIENT DOES NOT WISH TO STAY TO STAY TO COMPLETE DETOX REGIMEN. RISKS OF LEAVING DETOX UNIT AGAINST MEDICAL ADVICE AND PRIOR TO COMPLETION OF DETOX REGIMEN EXPLAINED TO PATIENT. PATIENT ADVISED TO GO IMMEDIATELY TO NEAREST ER SHOULD ANY INTOLERABLE DETOX SYMPTOMS DEVELOP AT ANY TIME. PATIENT LEFT DETOX UNIT IN STABLE MEDICAL CONDITION. Pertinent Past History: HTN, History of Atrial Fibrillation, History of Right Hip Pain, Arthritis of Right Hip, Depression, Anxiety, Insomnia, Nicotine Dependence, History of Inguinal Hernia Repair, History of Splenectomy, Syncope, Weight Decreased. - Physical Exam Results Vital Signs: Vital Signs Temperature 97.6 F 11/03/17 09:56 Pulse Rate 66 11/03/17 09:56 Respiratory Rate 16 11/03/17 09:56 Blood Pressure 146/91 11/03/17 09:56 O2 Sat by Pulse Oximetry (%) Pertinent Admission Physical Exam Findings: WITHDRAWAL SYMPTOMS. Laboratory Tests 10/31/17 11/01/17 11/01/17 18:35 07:00 07:00 WBC 7.4 RBC 4.13 Hgb 13.6 Hct 40.4 MCV 97.7 H MCH 32.8 MCHC 33.6 RDW 14.1 Plt Count 242 MPV 10.0 Sodium 138 Potassium 4.1 Chloride 105 Carbon Dioxide 27 Anion Gap 6 L BUN 16 D Creatinine 0.9 Creat Clearance w eGFR > 60 Random Glucose 113 H D Calcium 8.3 L Total Bilirubin 0.8 D AST 92 H D ALT 108 H D Alkaline Phosphatase 87 Total Protein 6.7 Albumin 3.1 L Urine Color Anjelica Urine Appearance Slcloudy Urine pH 5.0 Ur Specific [place] 1.018 Urine Protein 1+ H Urine Glucose (UA) Negative Urine Ketones Negative Urine Blood Negative Urine Nitrite Negative Urine Bilirubin Negative Urine Urobilinogen 4.0 e.u/dl Ur Leukocyte Esterase Negative Urine WBC (Auto) 6 Urine RBC (Auto) 12 Ur Epithelial Cells Rare Urine Bacteria Rare Hyaline Casts 42 Urine Mucus Rare RPR Titer 11/01/17 07:00 WBC RBC Hgb Hct MCV MCH MCHC RDW Plt Count MPV Sodium Potassium Chloride Carbon Dioxide Anion Gap BUN Creatinine Creat Clearance w eGFR Random Glucose Calcium Total Bilirubin AST ALT Alkaline Phosphatase Total Protein Albumin Urine Color Urine Appearance Urine pH Ur Specific [place] Urine Protein Urine Glucose (UA) Urine Ketones Urine Blood Urine Nitrite Urine Bilirubin Urine Urobilinogen Ur Leukocyte Esterase Urine WBC (Auto) Urine RBC (Auto) Ur Epithelial Cells Urine Bacteria Hyaline Casts Urine Mucus RPR Titer Nonreactive LABS NOTED. - Treatment Hospital Course: Detoxed Safely - Medication Discharge Medications: Ambulatory Orders Amlodipine Besylate [Norvasc -] 10 mg PO DAILY #30 tablet 10/02/15 Aspirin [ASA -] 81 mg PO DAILY #30 tab.chew 06/08/16 Atorvastatin Ca [Lipitor] 40 mg PO HS 10/31/17 Diltiazem HCl [Cardizem LA] 120 mg PO DAILY 10/31/17 Verapamil HCl [Verapamil ER] 120 mg PO DAILY 10/31/17 - Diagnosis (1) Alcohol dependence with uncomplicated withdrawal Status: Acute (2) History of atrial fibrillation Status: Chronic (3) History of bilateral inguinal hernia repair Status: Chronic (4) History of splenectomy Status: Chronic (5) Insomnia secondary to depression with anxiety Status: Chronic (6) Arthritis of right hip Status: Chronic (7) Essential hypertension Status: Chronic (8) Nicotine dependence Status: Acute Qualifiers: Nicotine product type: cigarettes Substance use status: uncomplicated Qualified Code(s): F17.210 - Nicotine dependence, cigarettes, uncomplicated (9) Weight decreased Status: Acute (10) Hepatitis C Status: Chronic Qualifiers: Viral hepatitis chronicity: chronic Hepatic coma status: without hepatic coma Qualified Code(s): B18.2 - Chronic viral hepatitis C (11) Cocaine dependence, uncomplicated Status: Acute (12) Syncope Status: Suspected Qualifiers: Syncope type: unspecified Qualified Code(s): R55 - Syncope and collapse (13) Substance induced mood disorder Status: Acute - AMA Did Patient Leave Against Medical Advice: Yes (PATIENT DID NOT WISH TO STAY TO COMPLETE DETOX REGIMEN.)
[2017-11-03] MEDS ORDERED: chlordiazePOXIDE HCL 10 MG CAPSULE PO SCH (23:00)
== END 2017-11-03 10:13 | disposition left against medical advice (07) | DRG 770 ==
LOC: YASAS 12:30 → Y3N 17:09
PROVIDERS: ADMIT Internal Medicine; ATTEND Internal Medicine
PROC: HZ2ZZZZ Detoxification Services for Substance Abuse Treatment (ICD-10-PCS; principal; 2017-10-31)
DX: F14.20 Cocaine dependence, uncomplicated (principal); F17.210 Nicotine dependence, cigarettes, uncomplicated; F32.9 Major depressive disorder, single episode, unspecified; F41.9 Anxiety disorder, unspecified; F19.24 Other psychoactive substance dependence with psychoactive substance-induced mood disorder; I48.91 Unspecified atrial fibrillation; Z86.79 Personal history of other diseases of the circulatory system; M25.551 Pain in right hip; R63.4 Abnormal weight loss; Z68.30 Body mass index [BMI] 30.0-30.9, adult; Z90.81 Acquired absence of spleen
CPT/HCPCS: 36415; 80053; 81003; 81015; 85027; 86593; 93005; 93010; J0735

== ENCOUNTER 2017-11-16 09:06 | Inpatient (IN) | payer OTHER ==
[2017-11-16 10:34] VITALS: BMI 30.3
--- NOTE | 2017-11-16 14:07 | HP ---
ANDREAS HERNANDEZ Rehab Assess/Revision - Admission History Ad[facility] (COMPLETED DETOX 10/31/17 TO 11/03/17) Date of Admission to Rehab: 11/16/17 - Vital signs Vital Signs: Vital Signs Period Temp Pulse Resp BP Sys/Umanzor Pulse Ox Last 24 Hr 97 F 68 18 171/118 - Findings Detox History & Physical reviewed: Yes Concur with findings: Yes Comments/Additional Findings: PT IS HERE FOR AFTERCARE HAVING COMPLETED DETOX HERE 12 DAYS AGO. ALERT O X 3. NAD. HX HTN. ADDENDUM: PT STATES HE WAS SUPPOSED TO HAVE HIP REPLACEMENT SURGERY ON 10/29/17 BUT IT WAS NOT DONE. HE CAME INTO DETOX ON 10/31/17 AND COMPLETED AND NOW WANTS TO GO TO REHAB AND GET READY FOR THE SURGERY. PT APPEARS VERY ANGRY STATING HE WANTS HIS SURGERY DONE. BUT WILL FOLLOW UP WITH PRE OP PLANS FOR SURGERY WITH HIS DOCTORS AFTER REHAB. Inpatient Rehab Admission - Initial Determination Are CD services needed?: Yes Free of communicable disease: Yes Not in need of hospitalization: Yes - Rehab Admission Criteria Patient is meeting Inpatient Rehab admission criteria:: Yes
[2017-11-16] MEDS ORDERED: ACETAMINOPHEN 325 MG TABLET (FP) PO PRN (14:35)
[2017-11-16] MEDS ORDERED: MAGNESIUM HYDROX 2400MG/30ML ORAL SUSPENSION 30 ML CUP PO PRN (14:35)
[2017-11-16] MEDS ORDERED: MENTHOL/PHENOL 1 EACH UD MM PRN (14:35)
[2017-11-16] MEDS ORDERED: MAG HYDROX/AL HYDROX/SIMETH 30 ML UNIT-DOSE CUP PO PRN (14:35)
[2017-11-16] MEDS ORDERED: LOPERAMIDE HCL 2 MG CAPSULE PO PRN (14:35)
[2017-11-16] MEDS ORDERED: MAGNESIUM CITRATE 300 ML BOTTLE PO PRN (14:35)
[2017-11-16] MEDS ORDERED: hydrOXYzine PAMOATE 50 MG CAPSULE (FP) PO PRN (14:35)
[2017-11-16] MEDS: amLODIPine BESYLATE 10 MG TABLET (FP) PO SCH (16:01)
[2017-11-16] MEDS: ASPIRIN 81 MG CHEWABLE TABLETS PO SCH (16:01)
[2017-11-16] MEDS: VERAPAMIL HCL 120 MG E.R. TABLET PO SCH (16:01)
[2017-11-16] MEDS: LIDOCAINE 5% TOPICAL PATCH TP SCH (16:02)
[2017-11-16] MEDS ORDERED: MELATONIN 5 MG TABLETS PO PRN (22:00)
[2017-11-16] MEDS: ATORVASTATIN CA 40 MG TABLET (FP) PO SCH (22:35)
[2017-11-16] MEDS: THIAMINE HCL 100 MG TABLET (FP) PO SCH (22:35)
[2017-11-16] MEDS: BACLOFEN 10 MG TABLET (FP) PO SCH (22:35)
[2017-11-16] MEDS: NAPROXEN 500 MG TABLET (FP) PO SCH (22:35)
[2017-11-16] MEDS: LIDOCAINE PATCH REMOVAL MC SCH (22:36)
[2017-11-17 05:09] LABS: URINE APPEARANCE SLCLOUDY; URINE BILIRUBIN NEGATIVE (<2.0 mg/dL); URINE BLOOD NEGATIVE (NEGATIVE); URINE COLOR AMBER; URINE GLUCOSE (UA) NEGATIVE (NEGATIVE); URINE KETONE NEGATIVE (NEGATIVE); URINE NITRITE NEGATIVE (NEGATIVE); URINE PROTEIN NEGATIVE (NEGATIVE); URINE UROBILINOGEN 4.0 E.U/dl mg/dL (0.2-1.0)
[2017-11-17 05:30] LABS: URINE LEUK ESTERASE 2+ (NEGATIVE)
[2017-11-17 05:51] LABS: CALCIUM OXALATE CRYSTALS MODERATE /hpf (NONE SEEN); URINE BACTERIA MANY /hpf (NONE SEEN); URINE MUCUS FEW
[2017-11-17] MEDS: BACLOFEN 10 MG TABLET (FP) PO SCH ×3 (06:18→21:11)
--- NOTE | 2017-11-17 06:53 | HP ---
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 Smokes 10ncigarettes daily Psychiatric History: Denies previous psychiatric history but reports being treated with Valium for anxiety and insomnia while in inpatient rehab in the past. Physical/Sexual Abuse/Trauma History: Denies history of physical, sexual abuse as well as DV relationship Additional Comment: Reports history of multiple arrests including 6 felony convictions. Denies being on parole/probation at present Vital Signs: Vital Signs - 24 hr 11/16/17 11/16/17 11/17/17 10:30 16:13 00:30 Temperature 97 F L 97.7 F Pulse Rate 68 69 Respiratory 18 18 18 Rate Blood Pressure 171/118 139/76 11/17/17 03:30 Temperature Pulse Rate Respiratory 18 Rate Blood Pressure Allergies/Adverse Reactions: Allergies Allergy/AdvReac Type Severity Reaction Status Date / Time No Known Allergies Allergy Verified 11/16/17 11:51 Date of last physical exam: 10/31/17 Concur with the findings of this exam: Yes - Substance Abuse/Tx History Hx Alcohol Use: Yes Hx Substance Use: Yes Substance Use Type: Alcohol (Started drinking alcohol at age 15, consumes one pint of vodka & a 6pk(12oz) daily. Last drank on 10/31/17), Cocaine (Started using cocaine at age 26, consumes one gram 1-2 times weekly. Last used on ) Hx Substance Use Treatment: Yes (7 previous inpt detox & one inpt rehab admissions @ [facility]) Mental Status Exam - Mental Status Exam Alert and Oriented to: Time, Place, Person Cognitive Function: Fair Patient Appearance: Disheveled Mood: Angry, Depressed Affect: Appropriate Patient Behavior: Cooperative Speech Pattern: Clear Voice Loudness: Normal Thought Process: Intact, Goal Oriented Thought Disorder: Not Present Hallucinations: Denies Suicidal Ideation: Denies Homicidal Ideation: Denies Insight/Judgement: Fair Sleep: Poorly Appetite: Fair Muscle strength/Tone: Normal Gait/Station: Other Additional Comments: use a cane as ambulatory aid Psychiatric Findings - Problem List ([place] 1, 2,3) (1) Alcohol dependence Current Visit: Yes Status: Acute (2) Cocaine dependence Current Visit: Yes Status: Acute (3) Nicotine dependence Current Visit: Yes Status: Acute Qualifiers: Nicotine product type: cigarettes Substance use status: in withdrawal Qualified Code(s): F17.213 - Nicotine dependence, cigarettes, with withdrawal (4) Substance induced mood disorder Current Visit: Yes Status: Acute (5) Substance-induced sleep disorder Current Visit: Yes Status: Acute (6) Arthritis of right hip Current Visit: Yes Status: Chronic (7) Essential hypertension Current Visit: Yes Status: Chronic (8) History of atrial fibrillation Current Visit: Yes Status: Chronic (9) History of bilateral inguinal hernia repair Current Visit: Yes Status: Chronic (10) Hepatitis C Current Visit: No Status: Chronic Qualifiers: Viral hepatitis chronicity: chronic Hepatic coma status: without hepatic coma Qualified Code(s): B18.2 - Chronic viral hepatitis C - Initial Treatment Plan Initial Treatment Plan: 1) Start Belsomra 10 mg po HS prn for insomnia. 2) Monitor progress
[2017-11-17] MEDS: VERAPAMIL HCL 120 MG E.R. TABLET PO SCH (10:01)
[2017-11-17] MEDS: ASPIRIN 81 MG CHEWABLE TABLETS PO SCH (10:01)
[2017-11-17] MEDS: PRENATAL VITAMINS W/ FOLIC ACID TABLET (FP) PO SCH (10:01)
[2017-11-17] MEDS: NAPROXEN 500 MG TABLET (FP) PO SCH ×2 (10:01→21:11)
[2017-11-17] MEDS: amLODIPine BESYLATE 10 MG TABLET (FP) PO SCH (10:01)
[2017-11-17] MEDS: LIDOCAINE 5% TOPICAL PATCH TP SCH (10:03)
[2017-11-17 10:07] LABS: HEMATOCRIT 43.2 % (35.4-49); HEMOGLOBIN 14.6 GM/dL (11.7-16.9); MCHC 33.7 g/dl (32.0-35.9); MEAN PLT VOLUME 10.5 fl (7.5-11.1); PLATELET COUNT 221 K/MM3 (134-434); RBC 4.41 M/mm3 (4.00-5.60); RDW 14.5 % (11.9-15.9); WHITE BLOOD COUNT 6.6 K/mm3 (4.0-10.0)
[2017-11-17 10:49] LABS: CHLORIDE 108 mmol/L (98-107); POTASSIUM 3.4 mmol/L (3.5-5.1); SODIUM 136 mmol/L (136-145)
[2017-11-17 11:15] LABS: ALBUMIN 3.4 g/dl (3.4-5.0); ALK PHOS 95 U/L (45-117); ANION GAP 3 (8-16); BILIRUBIN,TOTAL 0.9 mg/dL (0.2-1.0); BLOOD UREA NITROGEN 14 mg/dL (7-18); CALCIUM 8.7 mg/dL (8.5-10.1); CO2 25 mmol/L (21-32); CREATININE 0.9 mg/dL (0.7-1.3); GLUCOSE,RANDOM 91 mg/dL (74-106); SGOT/AST 90 U/L (15-37); SGPT/ALT 95 U/L (12-78); TOT PROT 7.3 g/dl (6.4-8.2)
--- NOTE | 2017-11-17 13:10 | EKG ---
Test Reason : Blood Pressure : / mmHG Vent. Rate : 059 BPM Atrial Rate : 059 BPM P-R Int : 180 ms QRS Dur : 102 ms QT Int : 496 ms P-R-T Axes : 062 -44 032 degrees QTc Int : 491 ms SINUS BRADYCARDIA WITH PREMATURE ATRIAL COMPLEXES LEFT AXIS DEVIATION ANTEROSEPTAL INFARCT (CITED ON OR BEFORE 31-OCT-2017) ABNORMAL ECG WHEN COMPARED WITH ECG OF 31-OCT-2017 17:29, PREMATURE ATRIAL COMPLEXES ARE NOW PRESENT INCOMPLETE RIGHT BUNDLE BRANCH BLOCK IS NO LONGER PRESENT Confirmed by JORDYN HERNANDEZ, DIANA ([id number]) on 11/17/2017 1:10:26 PM Referred By: Confirmed By:DIANA COBB MD
--- NOTE | 2017-11-17 15:36 | PN ---
[facility] Progress Note Note: Notified by staff to review labs. K+ 3.4, UA +many bacteria and leukocytes Laboratory Tests 11/17/17 11/17/17 11/17/17 00:42 06:00 06:00 WBC 6.6 RBC 4.41 Hgb 14.6 Hct 43.2 MCV 98.0 H MCH 33.0 MCHC 33.7 RDW 14.5 Plt Count 221 MPV 10.5 Sodium 136 Potassium 3.4 L Chloride 108 H Carbon Dioxide 25 Anion Gap 3 L BUN 14 Creatinine 0.9 Creat Clearance w eGFR > 60 Random Glucose 91 Calcium 8.7 Total Bilirubin 0.9 AST 90 H ALT 95 H Alkaline Phosphatase 95 Total Protein 7.3 Albumin 3.4 Urine Color Anjelica Urine Appearance Slcloudy Urine pH 5.0 Ur Specific [place] 1.018 Urine Protein Negative Urine Glucose (UA) Negative Urine Ketones Negative Urine Blood Negative Urine Nitrite Negative Urine Bilirubin Negative Urine Urobilinogen 4.0 e.u/dl Ur Leukocyte Esterase 2+ H Urine WBC (Auto) 3 Urine RBC (Auto) 1 Calcium Oxalate Crystal Moderate Urine Bacteria Many Urine Mucus Few Vital Signs Temperature 97.9 F 11/17/17 07:02 Pulse Rate 65 11/17/17 09:58 Respiratory Rate 18 11/17/17 07:02 Blood Pressure 145/89 11/17/17 09:58 O2 Sat by Pulse Oximetry (%) UTI Hypokalemia Increase oral fluids Start cipro 500mg BID x 5 days KDUR 20meq BID x 2 doses ordered repeat BMP on 11/19/17 continue to monitor clinically
[2017-11-17] MEDS: THIAMINE HCL 100 MG TABLET (FP) PO SCH (21:11)
[2017-11-17] MEDS: POTASSIUM CHLORIDE TABS 20 MEQ TABLET.ER (FP) PO SCH (21:12)
[2017-11-17] MEDS: ATORVASTATIN CA 40 MG TABLET (FP) PO SCH (21:13)
[2017-11-17] MEDS: LIDOCAINE PATCH REMOVAL MC SCH (21:13)
[2017-11-18] MEDS: SUVOREXANT 10 MG TABLET PO PRN ×2 (01:22→23:49)
[2017-11-18] MEDS: BACLOFEN 10 MG TABLET (FP) PO SCH ×3 (06:13→22:11)
[2017-11-18] MEDS: LIDOCAINE 5% TOPICAL PATCH TP SCH (10:08)
[2017-11-18] MEDS: ASPIRIN 81 MG CHEWABLE TABLETS PO SCH (10:08)
[2017-11-18] MEDS: PRENATAL VITAMINS W/ FOLIC ACID TABLET (FP) PO SCH (10:08)
[2017-11-18] MEDS: POTASSIUM CHLORIDE TABS 20 MEQ TABLET.ER (FP) PO SCH ×2 (10:08→22:11)
[2017-11-18] MEDS: NAPROXEN 500 MG TABLET (FP) PO SCH ×2 (10:08→22:11)
[2017-11-18] MEDS: amLODIPine BESYLATE 10 MG TABLET (FP) PO SCH (10:08)
[2017-11-18] MEDS: VERAPAMIL HCL 120 MG E.R. TABLET PO SCH (10:11)
--- NOTE | 2017-11-18 11:08 | EKG ---
Test Reason : Blood Pressure : / mmHG Vent. Rate : 056 BPM Atrial Rate : 056 BPM P-R Int : 178 ms QRS Dur : 094 ms QT Int : 486 ms P-R-T Axes : 065 -42 046 degrees QTc Int : 468 ms SINUS BRADYCARDIA POSSIBLE LEFT ATRIAL ENLARGEMENT LEFT AXIS DEVIATION ANTEROSEPTAL INFARCT (CITED ON OR BEFORE 31-OCT-2017) ABNORMAL ECG WHEN COMPARED WITH ECG OF 17-NOV-2017 05:30, PREMATURE ATRIAL COMPLEXES ARE NO LONGER PRESENT Confirmed by NANETTE FUNES MD ([id number]) on 11/18/2017 11:07:50 AM Referred By: Confirmed By:NANETTE FUNES MD
[2017-11-18] MEDS: ATORVASTATIN CA 40 MG TABLET (FP) PO SCH (22:11)
[2017-11-18] MEDS: THIAMINE HCL 100 MG TABLET (FP) PO SCH (22:11)
[2017-11-18] MEDS: LIDOCAINE PATCH REMOVAL MC SCH (22:37)
[2017-11-19] MEDS: BACLOFEN 10 MG TABLET (FP) PO SCH ×3 (06:31→22:14)
[2017-11-19] MEDS: guaiFENesin/D-METHORPHAN HB 10 ML UNIT-DOSE CUPS PO PRN (06:32)
[2017-11-19] MEDS: NAPROXEN 500 MG TABLET (FP) PO SCH ×2 (10:02→22:15)
[2017-11-19] MEDS: amLODIPine BESYLATE 10 MG TABLET (FP) PO SCH (10:02)
[2017-11-19] MEDS: ASPIRIN 81 MG CHEWABLE TABLETS PO SCH (10:02)
[2017-11-19] MEDS: PRENATAL VITAMINS W/ FOLIC ACID TABLET (FP) PO SCH (10:02)
[2017-11-19] MEDS: LIDOCAINE 5% TOPICAL PATCH TP SCH (10:03)
[2017-11-19] MEDS: VERAPAMIL HCL 120 MG E.R. TABLET PO SCH (10:04)
[2017-11-19] MEDS: THIAMINE HCL 100 MG TABLET (FP) PO SCH (22:14)
[2017-11-19] MEDS: ATORVASTATIN CA 40 MG TABLET (FP) PO SCH (22:15)
[2017-11-19] MEDS: SUVOREXANT 10 MG TABLET PO PRN (22:15)
[2017-11-19] MEDS: LIDOCAINE PATCH REMOVAL MC SCH (22:16)
[2017-11-20] MEDS: BACLOFEN 10 MG TABLET (FP) PO SCH ×3 (06:10→21:27)
[2017-11-20] MEDS: amLODIPine BESYLATE 10 MG TABLET (FP) PO SCH (09:37)
[2017-11-20] MEDS: NAPROXEN 500 MG TABLET (FP) PO SCH ×2 (09:37→21:26)
[2017-11-20] MEDS: VERAPAMIL HCL 120 MG E.R. TABLET PO SCH (09:37)
[2017-11-20] MEDS: LIDOCAINE 5% TOPICAL PATCH TP SCH (09:37)
[2017-11-20] MEDS: ASPIRIN 81 MG CHEWABLE TABLETS PO SCH (09:37)
[2017-11-20] MEDS: PRENATAL VITAMINS W/ FOLIC ACID TABLET (FP) PO SCH (09:37)
[2017-11-20] MEDS: guaiFENesin/D-METHORPHAN HB 10 ML UNIT-DOSE CUPS PO PRN (13:40)
[2017-11-20] MEDS: THIAMINE HCL 100 MG TABLET (FP) PO SCH (21:27)
[2017-11-20] MEDS: ATORVASTATIN CA 40 MG TABLET (FP) PO SCH (21:27)
[2017-11-20] MEDS: LIDOCAINE PATCH REMOVAL MC SCH (22:42)
[2017-11-21] MEDS: SUVOREXANT 10 MG TABLET PO PRN ×2 (00:18→21:32)
[2017-11-21] MEDS: guaiFENesin/D-METHORPHAN HB 10 ML UNIT-DOSE CUPS PO PRN ×3 (00:18→21:34)
[2017-11-21] MEDS: BACLOFEN 10 MG TABLET (FP) PO SCH ×3 (06:00→21:32)
[2017-11-21] MEDS ORDERED: PT OWN MED DRAWER 7, Y5N ONE (08:47)
[2017-11-21] MEDS: PRENATAL VITAMINS W/ FOLIC ACID TABLET (FP) PO SCH (09:55)
[2017-11-21] MEDS: NAPROXEN 500 MG TABLET (FP) PO SCH ×2 (09:55→21:32)
[2017-11-21] MEDS: amLODIPine BESYLATE 10 MG TABLET (FP) PO SCH (09:55)
[2017-11-21] MEDS: ASPIRIN 81 MG CHEWABLE TABLETS PO SCH (09:55)
[2017-11-21] MEDS: VERAPAMIL HCL 120 MG E.R. TABLET PO SCH (09:55)
[2017-11-21] MEDS: LIDOCAINE 5% TOPICAL PATCH TP SCH (09:55)
[2017-11-21] MEDS: P-EPHED 60MG/TRIPROLIDI 2.5MG TABLET PO PRN (09:58)
[2017-11-21] MEDS: THIAMINE HCL 100 MG TABLET (FP) PO SCH (21:31)
[2017-11-21] MEDS: ATORVASTATIN CA 40 MG TABLET (FP) PO SCH (21:32)
[2017-11-21] MEDS: LIDOCAINE PATCH REMOVAL MC SCH (22:51)
[2017-11-22] MEDS: BACLOFEN 10 MG TABLET (FP) PO SCH ×3 (06:04→21:19)
[2017-11-22] MEDS: P-EPHED 60MG/TRIPROLIDI 2.5MG TABLET PO PRN (06:05)
[2017-11-22] MEDS: ASPIRIN 81 MG CHEWABLE TABLETS PO SCH (09:57)
[2017-11-22] MEDS: amLODIPine BESYLATE 10 MG TABLET (FP) PO SCH (09:57)
[2017-11-22] MEDS: NAPROXEN 500 MG TABLET (FP) PO SCH ×2 (09:58→21:19)
[2017-11-22] MEDS: PRENATAL VITAMINS W/ FOLIC ACID TABLET (FP) PO SCH (09:58)
[2017-11-22] MEDS: LIDOCAINE 5% TOPICAL PATCH TP SCH (10:05)
[2017-11-22] MEDS: VERAPAMIL HCL 120 MG E.R. TABLET PO SCH (10:07)
[2017-11-22] MEDS ORDERED: PT OWN MED DRAWER 7, Y5N ONE (10:08)
[2017-11-22] MEDS: LIDOCAINE PATCH REMOVAL MC SCH (21:19)
[2017-11-22] MEDS: THIAMINE HCL 100 MG TABLET (FP) PO SCH (21:19)
[2017-11-22] MEDS: SUVOREXANT 10 MG TABLET PO PRN (21:19)
[2017-11-22] MEDS: ATORVASTATIN CA 40 MG TABLET (FP) PO SCH (21:19)
[2017-11-22] MEDS: guaiFENesin/D-METHORPHAN HB 10 ML UNIT-DOSE CUPS PO PRN (21:20)
[2017-11-23] MEDS ORDERED: SUVOREXANT 10 MG TABLET PO PRN (06:11)
[2017-11-23] MEDS: BACLOFEN 10 MG TABLET (FP) PO SCH ×3 (06:44→21:21)
[2017-11-23] MEDS: amLODIPine BESYLATE 10 MG TABLET (FP) PO SCH (09:51)
[2017-11-23] MEDS: PRENATAL VITAMINS W/ FOLIC ACID TABLET (FP) PO SCH (09:51)
[2017-11-23] MEDS: ASPIRIN 81 MG CHEWABLE TABLETS PO SCH (09:51)
[2017-11-23] MEDS: LIDOCAINE 5% TOPICAL PATCH TP SCH (09:52)
[2017-11-23] MEDS: NAPROXEN 500 MG TABLET (FP) PO SCH ×2 (09:52→21:22)
[2017-11-23] MEDS: VERAPAMIL HCL 120 MG E.R. TABLET PO SCH (09:52)
--- NOTE | 2017-11-23 10:51 | PN ---
Psychiatric Progress Note Vital Signs: Vital Signs Period Temp Pulse Resp BP Sys/Umanzor Pulse Ox Last 24 Hr 97.7 F 55 18-18 144/83 Date of Session: 11/23/17 Chief Complaint:: Discharge Note HPI: Patient addressing Alcohol and Cocaine Dependence comorbid with Nicotine Dependence, Substance-Induced Mood Disorder and Substance-Induced Sleep Disorder ROS: HTN, Arthritis right hip, Hep C and h/o AFib Current Medications: Active Medications Generic Name Dose Route Start Last Admin Trade Name Freq PRN Reason Stop Dose Admin Acetaminophen 650 mg 11/16/17 14:35 11/16/17 16:01 Tylenol - PO 650 mg Q4H PRN Administration FEVER Al Hydroxide/Mg Hydroxide 30 ml 11/16/17 14:35 Mylanta Oral Suspension - PO Q6H PRN DYSPEPSIA Amlodipine Besylate 10 mg 11/16/17 15:00 11/23/17 09:51 Norvasc - PO 10 mg DAILY ANTELMO Administration Aspirin 81 mg 11/16/17 15:00 11/23/17 09:51 Asa - PO 81 mg DAILY ANTELMO Administration Atorvastatin Calcium 40 mg 11/16/17 22:00 11/22/17 21:19 Lipitor - PO 40 mg HS ANTELMO Administration Baclofen 10 mg 11/16/17 22:00 11/23/17 06:44 Lioresal - PO 10 mg TID ANTELMO Administration Eucalyptus/Menthol/Phenol/Sorbitol 1 each 11/16/17 14:35 Cepastat Lozenge - MM Q4H PRN SORE THROAT Guaifenesin 10 ml 11/16/17 14:35 11/22/17 21:20 Robitussin Dm - PO 10 ml Q6H PRN Administration COUGH Hydroxyzine Pamoate 50 mg 11/16/17 14:35 Vistaril - PO Q4H PRN AGITATION Levofloxacin 500 mg 11/17/17 16:00 11/23/17 06:44 Levaquin - PO 500 mg DAILY@0600 ANTELMO Administration Lidocaine 1 patch 11/16/17 15:15 11/23/17 09:52 Lidoderm Patch - TP 1 patch DAILY ANTELMO Administration Loperamide HCl 4 mg 11/16/17 14:35 Imodium - PO Q6H PRN DIARRHEA Magnesium Citrate 300 ml 11/16/17 14:35 Citroma - PO Q48H PRN CONSTIPATION Magnesium Hydroxide 30 ml 11/16/17 14:35 Milk Of Magnesia - PO DAILY PRN CONSTIPATION Melatonin 5 mg 11/16/17 22:00 Melatonin PO HS PRN INSOMNIA Miscellaneous 1 each 11/16/17 22:00 11/22/17 21:19 Lidoderm Patch Removal MC 1 each DAILY@2200 ANTELMO Administration Naproxen 500 mg 11/16/17 22:00 11/23/17 09:52 Naprosyn - PO 500 mg BID ANTELMO Administration Multivit/Folic Acid/Iron 1 tab 11/17/17 10:00 11/23/17 09:51 Vitamins (Sjr) - PO 1 tab DAILY ANTELMO Administration Pseudoephedrine/Triprolidine 1 combo 11/16/17 14:35 11/22/17 06:05 Actifed - PO 1 combo TID PRN Administration NASAL CONGESTION Suvorexant 10 mg 11/23/17 06:11 Belsomra PO HS PRN INSOMNIA Thiamine HCl 100 mg 11/16/17 22:00 11/22/17 21:19 Vitamin B1 - PO 100 mg HS ATNELMO Administration Verapamil HCl 120 mg 11/16/17 15:15 11/23/17 09:52 Calan Sr - PO 120 mg DAILY ANTELMO Administration Current Side Effect: No Lab tests ordered: Yes Lab tests reviewed: Yes Provider note:: Patient will completed this program on 11/24/17. He has met his treatment goals and will continue to address his issues in outpatient treatment at [facility]. He verbalized understanding of the consequences of his addiction and from his participation in this program, he has learned to be focus and to address his medical issues the right way in lieu of self medication. He responded well to Belsomra prn for insomnia. He is stable for discharge on Total face to face time:: 35 Mental Status Exam - Mental Status Exam Alert and Oriented to: Time, Place, Person Cognitive Function: Fair Patient Appearance: Disheveled Mood: Hopeful, Euthymic Affect: Appropriate Patient Behavior: Cooperative Speech Pattern: Clear Voice Loudness: Normal, Limited Variation Thought Process: Goal Oriented Thought Disorder: Not Present Hallucinations: Denies Suicidal Ideation: Denies Homicidal Ideation: Denies Insight/Judgement: Fair Sleep: Fair Appetite: Good Muscle strength/Tone: Normal Gait/Station: Other (uses a cane as ambulatory aid) Psychiatric Treatment Plan - Problem List (1) Alcohol dependence Current Visit: Yes (2) Cocaine dependence Current Visit: Yes (3) Nicotine dependence Current Visit: Yes Qualifiers: Nicotine product type: cigarettes Substance use status: in withdrawal Qualified Code(s): F17.213 - Nicotine dependence, cigarettes, with withdrawal (4) Substance induced mood disorder Current Visit: Yes (5) Substance-induced sleep disorder Current Visit: Yes (6) Arthritis of right hip Current Visit: Yes (7) Essential hypertension Current Visit: Yes (8) History of atrial fibrillation Current Visit: Yes (9) History of bilateral inguinal hernia repair Current Visit: Yes (10) Hepatitis C Current Visit: No Qualifiers: Viral hepatitis chronicity: chronic Hepatic coma status: without hepatic coma Qualified Code(s): B18.2 - Chronic viral hepatitis C Initial treatment plan: Patient will be discharged tomorrow and referred to [facility] for outpatient treatment
[2017-11-23] MEDS: ATORVASTATIN CA 40 MG TABLET (FP) PO SCH (21:21)
[2017-11-23] MEDS: THIAMINE HCL 100 MG TABLET (FP) PO SCH (21:21)
[2017-11-23] MEDS: LIDOCAINE PATCH REMOVAL MC SCH (21:22)
[2017-11-24] MEDS: BACLOFEN 10 MG TABLET (FP) PO SCH (06:10)
[2017-11-24 06:41] VITALS: BP 127/89; PULSE 61; TEMP 97.8
[2017-11-24] MEDS: NAPROXEN 500 MG TABLET (FP) PO SCH (10:09)
[2017-11-24] MEDS: amLODIPine BESYLATE 10 MG TABLET (FP) PO SCH (10:09)
[2017-11-24] MEDS: LIDOCAINE 5% TOPICAL PATCH TP SCH (10:09)
[2017-11-24] MEDS: ASPIRIN 81 MG CHEWABLE TABLETS PO SCH (10:09)
[2017-11-24] MEDS: PRENATAL VITAMINS W/ FOLIC ACID TABLET (FP) PO SCH (10:09)
[2017-11-24] MEDS: VERAPAMIL HCL 120 MG E.R. TABLET PO SCH (10:11)
[2017-11-24] MEDS ORDERED: PT OWN MED DRAWER 7, Y5N ONE (10:12)
== END 2017-11-24 10:15 | disposition home or self-care (01) | DRG 772 ==
LOC: YASAS 09:06 → Y3W 14:46
PROVIDERS: ADMIT Psychiatry & Neurology Psychiatry; ATTEND Psychiatry & Neurology Psychiatry
PROC: HZ42ZZZ Group Counseling for Substance Abuse Treatment, Cognitive-Behavioral (ICD-10-PCS; principal; 2017-11-16)
DX: F10.20 Alcohol dependence, uncomplicated (principal); F14.20 Cocaine dependence, uncomplicated; F17.213 Nicotine dependence, cigarettes, with withdrawal; F19.24 Other psychoactive substance dependence with psychoactive substance-induced mood disorder; F19.282 Other psychoactive substance dependence with psychoactive substance-induced sleep disorder; I10 Essential (primary) hypertension; I48.91 Unspecified atrial fibrillation; N18.2 Chronic kidney disease, stage 2 (mild); N39.0 Urinary tract infection, site not specified; E87.6 Hypokalemia; M16.11 Unilateral primary osteoarthritis, right hip; Z90.81 Acquired absence of spleen
CPT/HCPCS: 36415; 80053; 81003; 81015; 85027; 86593; 93005; 93010; J0475

== ENCOUNTER 2018-04-14 10:15 | Inpatient (IN) | payer OTHER ==
[2018-04-14 11:46] VITALS: BMI 28.7
--- NOTE | 2018-04-14 17:53 | HP ---
CIWA Score - CIWA Score Nausea/Vomitin-Mild Nausea/No Vomiting Muscle Tremors: 1-None Visible, but [place] Anxiety: 1-Mildly Anxious Agitation: 1-Slight > Activity Paroxysmal Sweats: 3 Orientation: 0-Oriented Tacttile Disturbances: 2-Mild Itch/Numbness/Burn Auditory Disturbances: 1-Very Mild Visual Disturbances: 1-Very Mild Sensitivity Headache: 1-Very Mild CIWA-Ar Total Score: 12 Admission ROS [facility] - HPI Chief Complaint: WITHDRAWAL SYMPTOMS Allergies/Adverse Reactions: Allergies Allergy/AdvReac Type Severity Reaction Status Date / Time No Known Allergies Allergy Verified 04/14/18 12:30 History of Present Illness: 63 Y.O. MAN WITH AN EXTENSIVE HISTORY OF ALCOHOL AND CRACK-COCAINE DEPENDENCE IS HERE IS SEEKING DETOX. HE HAS HAS MULTIPLE ADMISSIONS HERE FOR DETOX AND REHAB WITH THE LAST ADMISSION BEING 02/13/18. HE DOES NOT HAVE A SIGNIFICANT PERIOD OF SOBRIETY. Exam Limitations: No Limitations - Ebola screening Have you traveled outside of the country in the last 21 days: No Have you been sick,other than usual withdrawal symptoms: No - Review of Systems Constitutional: Night Sweats, Unintentional Wgt. Loss EENT: reports: Blurred Vision, Double Vision, Tearing Respiratory: reports: Shortness of Breath Cardiac: reports: No Symptoms Reported GI: reports: Nausea : reports: No Symptoms Reported Musculoskeletal: reports: Back Pain, Joint Pain, Other (RIGHT HIP PAIN) Integumentary: reports: No Symptoms Reported Neuro: reports: Tingling (B/L LE) Endocrine: reports: No Symptoms Reported Hematology: reports: No Symptoms Reported Psychiatric: reports: Orientated x3, Anxious, Depressed Other Systems: Reviewed and Negative Patient History - Patient Medical History Hx Anemia: No Hx Asthma: No Hx Chronic Obstructive Pulmonary Disease (COPD): No Hx Cancer: No Hx Cardiac Disorders: Yes (atrial fibrilation, SVT) Hx Congestive Heart Failure: No Hx Hypertension: Yes (ON LISINOPRIL) Hx Hypercholesterolemia: No Hx Pacemaker: No HX Cerebrovascular Accident: No Hx Seizures: No Hx Dementia: No Hx Diabetes: No Hx Gastrointestinal Disorders: No Hx Liver Disease: No Hx Genitourinary Disorders: No Hx Sexually Transmitted Disorders: No Hx Renal Disease (ESRD): No Hx Thyroid Disease: No Hx Human Immunodeficiency Virus (HIV): No (LAST 2016 NEGATIVE) Hx Hepatitis C: Yes (Not treated) Hx Depression: Yes (Not on meds) Hx Suicide Attempt: No (Denies SI) Hx Bipolar Disorder: No Hx Schizophrenia: No - Patient Surgical History Past Surgical History: Yes Hx Neurologic Surgery: No Hx Cataract Extraction: No Hx Cardiac Surgery: No Hx Lung Surgery: No Hx Breast Surgery: No Hx Breast Biopsy: No Hx Abdominal Surgery: Yes (splenectomy IN 2000) Hx Appendectomy: No Hx Cholecystectomy: No Hx Genitourinary Surgery: No Hx Section: No Hx Orthopedic Surgery: No Other Surgical History: bilateral inguinal hernia repair in 2011 Anesthesia Reaction: No - PPD History Previous Implant?: Yes Documented Results: Negative w/proof Implanted On Prior [facility] Admission?: Yes Date: 11/02/17 Results: NEGATIVE PPD to be Administered?: No - Reproductive History Patient is a Female of Child Bearing Age (11 -55 yrs old): No - Smoking Cessation Smoking history: Current every day smoker Have you smoked in the past 12 months: Yes Aproximately how many cigarettes per day: 5 Cigars Per Day: 0 Hx Chewing Tobacco Use: No Initiated information on smoking cessation: Yes 'Breaking Loose' booklet given: 04/14/18 - Substance & Tx. History Hx Alcohol Use: Yes Hx Substance Use: Yes Substance Use Type: Alcohol, Cocaine Hx Substance Use Treatment: Yes (DETOX: 02/2018; REHAB:08/2016 ) - Substances Abused Alcohol Route: Oral Frequency: Daily Amount used: 4-5 CANS BEERS (12 OUNCES), 2 NIPS OF VODKA Age of first use: 16 Date of Last Use: 04/14/18 Crack Route: Smoking Frequency: Daily Amount used: 1 GRAM DAILY Age of first use: 32 Date of Last Use: 04/14/18 Family Disease History - Family Disease History Family Disease History: Diabetes: Mother (HTN,ALCOHOL), Heart Disease: Father ( HTN,ALCOHOL), Mother, CA: Sister (BRAIN), Other: Mother, Brother (DRUG/ALCOHOL) Admission Physical Exam BHS - Vital Signs Vital Signs: Vital Signs - 24 hr 04/14/18 11:37 Temperature 96.2 F L Pulse Rate 92 H Respiratory 18 Rate Blood Pressure 91/74 - Physical General Appearance: Yes: Disheveled, Sweating, Anxious HEENTM: Yes: Hearing grossly Normal, Normal ENT Inspection, Normocephalic, Other (MISSING TEETH; POOR DENTATION) Respiratory: Yes: Chest Non-Tender, Lungs Clear, Normal Breath Sounds Neck: Yes: Within Normal Limits, No masses,lesions,Nodules Breast: Yes: Breast Exam Deferred Cardiology: Yes: Regular Rhythm, Regular Rate Abdominal: Yes: Normal Bowel Sounds, Non Tender Genitourinary: Yes: Other (NO COMPLAINTS REPORTED) Musculoskeletal: Yes: Back pain, Joint Stiffness, Other (ANTALGIC GAIT) Extremities: Yes: Tremors Neurological: Yes: Alert Integumentary: Yes: Dry, Warm Lymphatic: Yes: Within Normal Limits - Diagnostic (1) Alcohol dependence with uncomplicated withdrawal Current Visit: Yes Status: Chronic (2) Cocaine dependence Current Visit: Yes Status: Chronic (3) Arthritis of right hip Current Visit: Yes Status: Chronic (4) Essential hypertension Current Visit: Yes Status: Chronic (5) Hepatitis C Current Visit: No Status: Chronic Qualifiers: Viral hepatitis chronicity: chronic Hepatic coma status: without hepatic coma Qualified Code(s): B18.2 - Chronic viral hepatitis C (6) History of atrial fibrillation Current Visit: No Status: Chronic (7) Nicotine dependence Current Visit: Yes Status: Chronic Qualifiers: Nicotine product type: cigarettes Substance use status: in withdrawal Qualified Code(s): F17.213 - Nicotine dependence, cigarettes, with withdrawal Cleared for Admission [facility] - Detox or Rehab [facility] Level of Care: Medically Managed Detox Regimen/Protocol: Librium [facility] Breath Alcohol Content Breath Alcohol Content: 0 Urine Drug Screen - Results Drug Screen Negative: No Urine Drug Screen Results: PIYUSH-Cocaine
[2018-04-14] MEDS ORDERED: P-EPHED 60MG/TRIPROLIDI 2.5MG TABLET PO PRN (17:56)
[2018-04-14] MEDS ORDERED: LOPERAMIDE HCL 2 MG CAPSULE PO PRN (17:56)
[2018-04-14] MEDS ORDERED: chlordiazePOXIDE HCL 25 MG CAPSULE PO PRN (17:56)
[2018-04-14] MEDS ORDERED: ACETAMINOPHEN 325 MG TABLET (FP) PO PRN (17:56)
[2018-04-14] MEDS ORDERED: MAGNESIUM CITRATE 300 ML BOTTLE PO PRN (17:56)
[2018-04-14] MEDS ORDERED: MENTHOL/PHENOL 1 EACH UD MM PRN (17:56)
[2018-04-14] MEDS ORDERED: guaiFENesin/D-METHORPHAN HB 10 ML UNIT-DOSE CUPS PO PRN (17:56)
[2018-04-14] MEDS ORDERED: MAG HYDROX/AL HYDROX/SIMETH 30 ML UNIT-DOSE CUP PO PRN (17:56)
[2018-04-14] MEDS ORDERED: MAGNESIUM HYDROX 2400MG/30ML ORAL SUSPENSION 30 ML CUP PO PRN (17:56)
[2018-04-14] MEDS ORDERED: chlordiazePOXIDE HCL 25 MG CAPSULE PO ONE (18:30)
[2018-04-14] MEDS: chlordiazePOXIDE HCL 25 MG CAPSULE PO SCH (22:37)
[2018-04-14] MEDS: THIAMINE HCL 100 MG TABLET (FP) PO SCH (22:37)
[2018-04-15 02:07] LABS: URINE APPEARANCE TURBID; URINE COLOR YELLOW; URINE GLUCOSE (UA) NEGATIVE (NEGATIVE); URINE KETONE NEGATIVE (NEGATIVE); URINE LEUK ESTERASE NEGATIVE (NEGATIVE); URINE NITRITE NEGATIVE (NEGATIVE); URINE UROBILINOGEN 4.0 E.U/dl mg/dL (0.2-1.0)
[2018-04-15 02:30] LABS: URINE PROTEIN 2+ (NEGATIVE)
[2018-04-15 02:34] LABS: URINE HYALINE CAST 62 /lpf; URINE MUCUS MODERATE; YEAST MANY
[2018-04-15] MEDS: chlordiazePOXIDE HCL 25 MG CAPSULE PO SCH ×4 (06:57→22:23)
--- NOTE | 2018-04-15 10:28 | EKG ---
Test Reason : Blood Pressure : / mmHG Vent. Rate : 114 BPM Atrial Rate : 340 BPM P-R Int : 000 ms QRS Dur : 094 ms QT Int : 322 ms P-R-T Axes : 000 -49 073 degrees QTc Int : 443 ms ATRIAL FIBRILLATION WITH RAPID VENTRICULAR RESPONSE LEFT AXIS DEVIATION SEPTAL INFARCT (CITED ON OR BEFORE 31-OCT-2017) ABNORMAL ECG WHEN COMPARED WITH ECG OF 13-FEB-2018 17:17, ATRIAL FIBRILLATION HAS REPLACED SINUS RHYTHM VENT. RATE HAS INCREASED BY 45 BPM QUESTIONABLE CHANGE IN INITIAL FORCES OF ANTERIOR LEADS Confirmed by DIANA COBB MD ([id number]) on 04/15/2018 10:27:47 AM Referred By: Liza Ott Confirmed By:DIANA COBB MD
[2018-04-15] MEDS: LISINOPRIL 10 MG TABLET (FP) PO SCH (10:35)
[2018-04-15] MEDS: PRENATAL VITAMINS W/ FOLIC ACID TABLET (FP) PO SCH (10:35)
[2018-04-15] MEDS: ASPIRIN COATED 81 MG TABLET.EC PO SCH (10:35)
[2018-04-15] MEDS: IBUPROFEN 400 MG TABLET (FP) PO PRN ×2 (10:36→22:25)
[2018-04-15 10:54] LABS: HEMATOCRIT 48.4 % (35.4-49); HEMOGLOBIN 15.9 GM/dL (11.7-16.9); MCH 32.5 pg (25.7-33.7); MCHC 32.9 g/dl (32.0-35.9); MEAN CELL VOLUME 98.6 fl (80-96); MEAN PLT VOLUME 10.8 fl (7.5-11.1); PLATELET COUNT 235 K/MM3 (134-434); RBC 4.91 M/mm3 (4.00-5.60); RDW 13.7 % (11.9-15.9); WHITE BLOOD COUNT 9.9 K/mm3 (4.0-10.0)
[2018-04-15 11:06] LABS: ALBUMIN 3.7 g/dl (3.4-5.0); ANION GAP 12 MMOL/L (8-16); BLOOD UREA NITROGEN 20 mg/dL (7-18); CALCIUM 9.4 mg/dL (8.5-10.1); CHLORIDE 109 mmol/L (98-107); CO2 20 mmol/L (21-32); GLUCOSE,RANDOM 96 mg/dL (74-106); POTASSIUM 4.2 mmol/L (3.5-5.1); SODIUM 141 mmol/L (136-145)
[2018-04-15 11:12] LABS: ALK PHOS 96 U/L (45-117); BILIRUBIN,TOTAL 0.8 mg/dL (0.2-1.0); CREATININE 1.2 mg/dL (0.7-1.3); SGOT/AST 99 U/L (15-37); SGPT/ALT 116 U/L (12-78); TOT PROT 7.7 g/dl (6.4-8.2)
--- NOTE | 2018-04-15 14:07 | CONSULT ---
[facility] Psychiatric Consult - Data Date of interview: 04/15/18 Admission source: [facility] Identifying data: Readmission to [facility] for this 63 y/o male, from [place] ancestry, seeking detox treatment,on ,for alcohol and cocaine dependence.Patient is single without children,unemployed,homeless (senior care) and supported on Public Assistance. Substance Abuse History: Discussed in this session.Patient confirms the following : Smoking history: Current every day smoker. Have you smoked in the past 12 months: Yes. Aproximately how many cigarettes per day: 5. Cigars Per Day: 0. Hx Chewing Tobacco Use: No. Initiated information on smoking cessation : Yes. 'Breaking Loose' booklet given: 04/14/18. - Substance & Tx. History. Hx Alcohol Use: Yes. Hx Substance Use: Yes. Substance Use Type: Alcohol, Cocaine. Hx Substance Use Treatment: Yes (DETOX: 02/2018; REHAB:08/2016 ). - Substances Abused. Alcohol. Route: Oral. Frequency: Daily. Amount used: 4 -5 CANS BEERS (12 OUNCES), 2 NIPS OF VODKA. Age of first use: 16. Date of Last Use: 04/14/18. Crack. Route: Smoking. Frequency: Daily. Amount used : 1 GRAM DAILY. Age of first use: 32. 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 Psychiatric History: Patient denies. Physical/Sexual Abuse/Trauma History: Patient declines to discuss this domain. Additional Comment: Urine Drug Screen Results: PIYUSH-Cocaine.Noted. Mental Status Exam - Mental Status Exam Alert and Oriented to: Time, Place, Person Cognitive Function: Grossly Intact Patient Appearance: Disheveled Mood: Withdrawn, Irritable Affect: Mood Congruent Patient Behavior: Fatigued, Cooperative Speech Pattern: Clear Voice Loudness: Normal Thought Process: Goal Oriented Thought Disorder: Not Present Hallucinations: Denies Suicidal Ideation: Denies Homicidal Ideation: Denies Insight/Judgement: Poor Sleep: Poorly, Difficulty falling asleep Appetite: Good Muscle strength/Tone: Normal Gait/Station: Other (not observed ; in bed since morning) Psychiatric Findings - Problem List ([place] 1, 2,3) (1) Alcohol dependence with uncomplicated withdrawal Current Visit: Yes Status: Acute (2) Cocaine dependence Current Visit: Yes Status: Acute (3) Nicotine dependence Current Visit: Yes Status: Acute Qualifiers: Nicotine product type: cigarettes Substance use status: in withdrawal Qualified Code(s): F17.213 - Nicotine dependence, cigarettes, with withdrawal (4) Substance induced mood disorder Current Visit: Yes Status: Acute (5) Insomnia Current Visit: Yes Status: Acute - Initial Treatment Plan Initial Treatment Plan: Psychoeducation.Sleep hygiene.Detoxification.Melatonin 5 mg po hs prn (to address insomnia).Side effects/benefits discussed.Patient agrees.Observation.
[2018-04-15] MEDS ORDERED: cloNIDine HCL 0.1 MG TABLET PO ONE (21:55)
[2018-04-15] MEDS: MELATONIN 5 MG TABLETS PO PRN (22:23)
[2018-04-15] MEDS: THIAMINE HCL 100 MG TABLET (FP) PO SCH (22:23)
[2018-04-16] MEDS: chlordiazePOXIDE HCL 25 MG CAPSULE PO SCH ×3 (05:33→17:23)
[2018-04-16] MEDS: PRENATAL VITAMINS W/ FOLIC ACID TABLET (FP) PO SCH (10:24)
[2018-04-16] MEDS: LISINOPRIL 10 MG TABLET (FP) PO SCH (10:24)
[2018-04-16] MEDS: ASPIRIN COATED 81 MG TABLET.EC PO SCH (10:24)
[2018-04-16] MEDS ORDERED: cloNIDine HCL 0.1 MG TABLET PO PRN ×2 (16:17→16:18)
[2018-04-16] MEDS ORDERED: diazePAM 5 MG TABLET PO ONE (18:49)
--- NOTE | 2018-04-16 18:49 | PN ---
S CIWA - CIWA Score Nausea/Vomitin-Mild Nausea/No Vomiting Muscle Tremors: 2 Anxiety: 1-Mildly Anxious Agitation: 1-Slight > Activity Paroxysmal Sweats: No Perspiration Orientation: 0-Oriented Tacttile Disturbances: 0-None Auditory Disturbances: 0-None Visual Disturbances: 0-None Headache: 0-None Present CIWA-Ar Total Score: 5 BHS Progress Note (SOAP) Subjective: pt states he is OK Obj: Vital Signs - 24 hr 04/15/18 04/16/18 04/16/18 21:16 00:30 03:30 Temperature 97.6 F Pulse Rate 70 Respiratory 18 18 18 Rate Blood Pressure 165/97 04/16/18 04/16/18 04/16/18 06:28 11:20 13:54 Temperature 97 F L 97.2 F L 97.1 F L Pulse Rate 56 L 63 64 Respiratory 18 18 18 Rate Blood Pressure 143/99 161/105 160/107 04/16/18 18:11 Temperature 97.8 F Pulse Rate 65 Respiratory 18 Rate Blood Pressure 149/83 Laboratory Tests 04/15/18 04/15/18 04/15/18 00:45 06:00 06:00 WBC 9.9 RBC 4.91 Hgb 15.9 Hct 48.4 MCV 98.6 H MCH 32.5 MCHC 32.9 RDW 13.7 Plt Count 235 MPV 10.8 Sodium 141 Potassium 4.2 Chloride 109 H Carbon Dioxide 20 L Anion Gap 12 BUN 20 H Creatinine 1.2 Creat Clearance w eGFR > 60 Random Glucose 96 Calcium 9.4 Total Bilirubin 0.8 AST 99 H ALT 116 H D Alkaline Phosphatase 96 Total Protein 7.7 Albumin 3.7 Urine Color Yellow Urine Appearance Turbid Urine pH 5.0 Ur Specific [place] 1.033 Urine Protein 2+ H D Urine Glucose (UA) Negative Urine Ketones Negative Urine Blood 1+ H Urine Nitrite Negative Urine Bilirubin 2.0 Urine Urobilinogen 4.0 e.u/dl Ur Leukocyte Esterase Negative Urine WBC (Auto) 50 Urine RBC (Auto) 8 Hyaline Casts 62 Urine Mucus Moderate Urine Yeast Many RPR Titer 04/15/18 06:00 WBC RBC Hgb Hct MCV MCH MCHC RDW Plt Count MPV Sodium Potassium Chloride Carbon Dioxide Anion Gap BUN Creatinine Creat Clearance w eGFR Random Glucose Calcium Total Bilirubin AST ALT Alkaline Phosphatase Total Protein Albumin Urine Color Urine Appearance Urine pH Ur Specific [place] Urine Protein Urine Glucose (UA) Urine Ketones Urine Blood Urine Nitrite Urine Bilirubin Urine Urobilinogen Ur Leukocyte Esterase Urine WBC (Auto) Urine RBC (Auto) Hyaline Casts Urine Mucus Urine Yeast RPR Titer Nonreactive increased liver enzymes, nl VS a/p: 63 Y.O. MAN WITH AN EXTENSIVE HISTORY OF ALCOHOL AND CRACK-COCAINE DEPENDENCE IS HERE for DETOX, continue detox protocol, will repeat labs, d/c librium and tylenol, add valium
[2018-04-16] MEDS: diazePAM 5 MG TABLET PO SCH (22:39)
[2018-04-16] MEDS: THIAMINE HCL 100 MG TABLET (FP) PO SCH (22:39)
[2018-04-16] MEDS: MELATONIN 5 MG TABLETS PO PRN (22:40)
[2018-04-16] MEDS: hydrOXYzine PAMOATE 50 MG CAPSULE (FP) PO PRN (22:42)
[2018-04-16] MEDS: IBUPROFEN 400 MG TABLET (FP) PO PRN (22:42)
[2018-04-16] MEDS ORDERED: chlordiazePOXIDE 5 MG CAPSULE PO SCH (23:00)
[2018-04-17] MEDS: diazePAM 5 MG TABLET PO SCH ×3 (05:38→22:36)
[2018-04-17] MEDS: LISINOPRIL 10 MG TABLET (FP) PO SCH (10:22)
[2018-04-17] MEDS: diazePAM 5 MG TABLET PO PRN (10:22)
[2018-04-17] MEDS: PRENATAL VITAMINS W/ FOLIC ACID TABLET (FP) PO SCH (10:22)
[2018-04-17] MEDS: ASPIRIN COATED 81 MG TABLET.EC PO SCH (10:22)
[2018-04-17 10:51] LABS: ALBUMIN 2.8 g/dl (3.4-5.0); BILIRUBIN,DIRECT 0.3 mg/dL (0.0-0.2); BILIRUBIN,TOTAL 0.5 mg/dL (0.2-1.0); TOT PROT 6.4 g/dl (6.4-8.2)
--- NOTE | 2018-04-17 11:49 | PN ---
S CIWA - CIWA Score Nausea/Vomitin-No Nausea/No Vomiting Muscle Tremors: 4-Moderate,w/Arms Extend Anxiety: 4-Mod. Anxious/Guarded Agitation: 4-Moderately Restless Paroxysmal Sweats: 3 Orientation: 0-Oriented Tacttile Disturbances: 0-None Auditory Disturbances: 0-None Visual Disturbances: 0-None Headache: 0-None Present CIWA-Ar Total Score: 15 BHS Progress Note (SOAP) Subjective: C/O ANXIETY, SWEATS, FATIGUE. Objective: 04/17/18 11:47 Vital Signs 04/17/18 04/17/18 06:09 10:45 Temperature 96.5 F L 96.9 F L Pulse Rate 58 L 63 Respiratory 18 18 Rate Blood Pressure 140/92 153/97 Laboratory Tests 04/15/18 04/15/18 04/15/18 00:45 06:00 06:00 WBC 9.9 RBC 4.91 Hgb 15.9 Hct 48.4 MCV 98.6 H MCH 32.5 MCHC 32.9 RDW 13.7 Plt Count 235 MPV 10.8 Sodium 141 Potassium 4.2 Chloride 109 H Carbon Dioxide 20 L Anion Gap 12 BUN 20 H Creatinine 1.2 Creat Clearance w eGFR > 60 Random Glucose 96 Calcium 9.4 Total Bilirubin 0.8 Direct Bilirubin AST 99 H ALT 116 H D Alkaline Phosphatase 96 Total Protein 7.7 Albumin 3.7 Urine Color Yellow Urine Appearance Turbid Urine pH 5.0 Ur Specific [place] 1.033 Urine Protein 2+ H D Urine Glucose (UA) Negative Urine Ketones Negative Urine Blood 1+ H Urine Nitrite Negative Urine Bilirubin 2.0 Urine Urobilinogen 4.0 e.u/dl Ur Leukocyte Esterase Negative Urine WBC (Auto) 50 Urine RBC (Auto) 8 Hyaline Casts 62 Urine Mucus Moderate Urine Yeast Many RPR Titer 04/15/18 04/17/18 06:00 07:40 WBC RBC Hgb Hct MCV MCH MCHC RDW Plt Count MPV Sodium Potassium Chloride Carbon Dioxide Anion Gap BUN Creatinine Creat Clearance w eGFR Random Glucose Calcium Total Bilirubin 0.5 Direct Bilirubin 0.3 H AST 75 H D ALT 93 H Alkaline Phosphatase 81 D Total Protein 6.4 Albumin 2.8 L Urine Color Urine Appearance Urine pH Ur Specific [place] Urine Protein Urine Glucose (UA) Urine Ketones Urine Blood Urine Nitrite Urine Bilirubin Urine Urobilinogen Ur Leukocyte Esterase Urine WBC (Auto) Urine RBC (Auto) Hyaline Casts Urine Mucus Urine Yeast RPR Titer Nonreactive Assessment: 04/17/18 11:48 WITHDRAWAL SX Plan: CONTINUE DETOX INCREASE PO FLUIDS
[2018-04-17] MEDS ORDERED: dilTIAZem HCL 30 MG TABLET (FP) PO ONE (14:46)
[2018-04-17] MEDS: dilTIAZem HCL 30 MG TABLET (FP) PO SCH (22:36)
[2018-04-17] MEDS: THIAMINE HCL 100 MG TABLET (FP) PO SCH (22:36)
[2018-04-17] MEDS: MELATONIN 5 MG TABLETS PO PRN (22:37)
[2018-04-17] MEDS: IBUPROFEN 400 MG TABLET (FP) PO PRN (22:38)
[2018-04-17] MEDS ORDERED: chlordiazePOXIDE HCL 10 MG CAPSULE PO SCH (23:00)
[2018-04-18] MEDS: diazePAM 5 MG TABLET PO PRN ×3 (05:10→23:52)
[2018-04-18] MEDS: dilTIAZem HCL 30 MG TABLET (FP) PO SCH ×3 (05:10→22:29)
[2018-04-18] MEDS: PRENATAL VITAMINS W/ FOLIC ACID TABLET (FP) PO SCH (10:02)
[2018-04-18] MEDS: ASPIRIN COATED 81 MG TABLET.EC PO SCH (10:02)
[2018-04-18] MEDS: diazePAM 5 MG TABLET PO SCH ×2 (10:02→22:29)
[2018-04-18] MEDS: LISINOPRIL 10 MG TABLET (FP) PO SCH (10:04)
--- NOTE | 2018-04-18 11:48 | PN ---
BHS Progress Note (SOAP) Subjective: ANXIETY,CHRONIC HIP PAIN, IRRITABILITY. Objective: 04/18/18 11:47 Vital Signs 04/18/18 04/18/18 06:16 09:13 Temperature 97.4 F L 97.7 F Pulse Rate 58 L 67 Respiratory 16 18 Rate Blood Pressure 133/75 129/77 Laboratory Tests 04/15/18 04/15/18 04/15/18 00:45 06:00 06:00 WBC 9.9 RBC 4.91 Hgb 15.9 Hct 48.4 MCV 98.6 H MCH 32.5 MCHC 32.9 RDW 13.7 Plt Count 235 MPV 10.8 Sodium 141 Potassium 4.2 Chloride 109 H Carbon Dioxide 20 L Anion Gap 12 BUN 20 H Creatinine 1.2 Creat Clearance w eGFR > 60 Random Glucose 96 Calcium 9.4 Total Bilirubin 0.8 Direct Bilirubin AST 99 H ALT 116 H D Alkaline Phosphatase 96 Total Protein 7.7 Albumin 3.7 Urine Color Yellow Urine Appearance Turbid Urine pH 5.0 Ur Specific [place] 1.033 Urine Protein 2+ H D Urine Glucose (UA) Negative Urine Ketones Negative Urine Blood 1+ H Urine Nitrite Negative Urine Bilirubin 2.0 Urine Urobilinogen 4.0 e.u/dl Ur Leukocyte Esterase Negative Urine WBC (Auto) 50 Urine RBC (Auto) 8 Hyaline Casts 62 Urine Mucus Moderate Urine Yeast Many RPR Titer 04/15/18 04/17/18 06:00 07:40 WBC RBC Hgb Hct MCV MCH MCHC RDW Plt Count MPV Sodium Potassium Chloride Carbon Dioxide Anion Gap BUN Creatinine Creat Clearance w eGFR Random Glucose Calcium Total Bilirubin 0.5 Direct Bilirubin 0.3 H AST 75 H D ALT 93 H Alkaline Phosphatase 81 D Total Protein 6.4 Albumin 2.8 L Urine Color Urine Appearance Urine pH Ur Specific [place] Urine Protein Urine Glucose (UA) Urine Ketones Urine Blood Urine Nitrite Urine Bilirubin Urine Urobilinogen Ur Leukocyte Esterase Urine WBC (Auto) Urine RBC (Auto) Hyaline Casts Urine Mucus Urine Yeast RPR Titer Nonreactive Assessment: 04/18/18 11:48 WITHDRAWAL SX Plan: CONTINUE DETOX FLEXERIL 10 MG PO TID
[2018-04-18] MEDS: CYCLOBENZAPRINE HCL 10 MG TABLET (FP) PO SCH ×2 (14:18→22:29)
[2018-04-18] MEDS: THIAMINE HCL 100 MG TABLET (FP) PO SCH (22:29)
[2018-04-18] MEDS: MELATONIN 5 MG TABLETS PO PRN (23:52)
[2018-04-19] MEDS: dilTIAZem HCL 30 MG TABLET (FP) PO SCH ×3 (05:47→22:14)
[2018-04-19] MEDS: CYCLOBENZAPRINE HCL 10 MG TABLET (FP) PO SCH ×3 (05:47→22:14)
[2018-04-19] MEDS: LISINOPRIL 10 MG TABLET (FP) PO SCH (10:32)
[2018-04-19] MEDS: PRENATAL VITAMINS W/ FOLIC ACID TABLET (FP) PO SCH (10:32)
[2018-04-19] MEDS: ASPIRIN COATED 81 MG TABLET.EC PO SCH (10:33)
[2018-04-19] MEDS: diazePAM 5 MG TABLET PO SCH ×2 (10:33→22:14)
--- NOTE | 2018-04-19 11:08 | PN ---
BHS Progress Note (SOAP) Subjective: ANXIETY,SWEATS,DETOX PROCEEDING. PT WILL FOLLOW UP WITH COUNSELOR RE:AFTERCARE REFERRAL. Objective: 04/19/18 11:08 Vital Signs 04/19/18 04/19/18 04/19/18 03:30 05:59 07:44 Temperature 96.8 F L 97.2 F L Pulse Rate 67 64 Respiratory 18 18 18 Rate Blood Pressure 171/102 143/91 04/19/18 09:16 Temperature 96.6 F L Pulse Rate 67 Respiratory 18 Rate Blood Pressure 136/78 Laboratory Tests 04/15/18 04/15/18 04/15/18 00:45 06:00 06:00 WBC 9.9 RBC 4.91 Hgb 15.9 Hct 48.4 MCV 98.6 H MCH 32.5 MCHC 32.9 RDW 13.7 Plt Count 235 MPV 10.8 Sodium 141 Potassium 4.2 Chloride 109 H Carbon Dioxide 20 L Anion Gap 12 BUN 20 H Creatinine 1.2 Creat Clearance w eGFR > 60 Random Glucose 96 Calcium 9.4 Total Bilirubin 0.8 Direct Bilirubin AST 99 H ALT 116 H D Alkaline Phosphatase 96 Total Protein 7.7 Albumin 3.7 Urine Color Yellow Urine Appearance Turbid Urine pH 5.0 Ur Specific [place] 1.033 Urine Protein 2+ H D Urine Glucose (UA) Negative Urine Ketones Negative Urine Blood 1+ H Urine Nitrite Negative Urine Bilirubin 2.0 Urine Urobilinogen 4.0 e.u/dl Ur Leukocyte Esterase Negative Urine WBC (Auto) 50 Urine RBC (Auto) 8 Hyaline Casts 62 Urine Mucus Moderate Urine Yeast Many RPR Titer 04/15/18 04/17/18 06:00 07:40 WBC RBC Hgb Hct MCV MCH MCHC RDW Plt Count MPV Sodium Potassium Chloride Carbon Dioxide Anion Gap BUN Creatinine Creat Clearance w eGFR Random Glucose Calcium Total Bilirubin 0.5 Direct Bilirubin 0.3 H AST 75 H D ALT 93 H Alkaline Phosphatase 81 D Total Protein 6.4 Albumin 2.8 L Urine Color Urine Appearance Urine pH Ur Specific [place] Urine Protein Urine Glucose (UA) Urine Ketones Urine Blood Urine Nitrite Urine Bilirubin Urine Urobilinogen Ur Leukocyte Esterase Urine WBC (Auto) Urine RBC (Auto) Hyaline Casts Urine Mucus Urine Yeast RPR Titer Nonreactive Assessment: 04/19/18 11:08 WITHDRAWAL SX Plan: CONTINUE DETOX
[2018-04-19] MEDS: THIAMINE HCL 100 MG TABLET (FP) PO SCH (22:14)
[2018-04-20] MEDS: hydrOXYzine PAMOATE 50 MG CAPSULE (FP) PO PRN (05:49)
[2018-04-20] MEDS: CYCLOBENZAPRINE HCL 10 MG TABLET (FP) PO SCH (05:49)
[2018-04-20] MEDS: dilTIAZem HCL 30 MG TABLET (FP) PO SCH (05:49)
[2018-04-20 09:14] VITALS: BP 149/96; PULSE 70; TEMP 96.7
[2018-04-20] MEDS ORDERED: diazePAM 5 MG TABLET PO SCH (10:00)
[2018-04-20] MEDS: LISINOPRIL 10 MG TABLET (FP) PO SCH (10:37)
[2018-04-20] MEDS: PRENATAL VITAMINS W/ FOLIC ACID TABLET (FP) PO SCH (10:37)
[2018-04-20] MEDS: ASPIRIN COATED 81 MG TABLET.EC PO SCH (10:37)
[2018-04-20] MEDS: IBUPROFEN 400 MG TABLET (FP) PO PRN (10:39)
--- NOTE | 2018-04-20 14:01 | PN ---
BHS Progress Note (SOAP) Subjective: DETOX COMPLETED. ALERT O X 3. PT REPORTS HE HAS PRIMARY CARE AT [address] [place] [address] FRANCISCO. Objective: 04/20/18 14:00 Vital Signs 04/20/18 04/20/18 04/20/18 06:26 07:38 09:13 Temperature 96.2 F L 97.3 F L 96.7 F L Pulse Rate 68 62 70 Respiratory 30 H 18 18 Rate Blood Pressure 169/102 129/79 149/96 Laboratory Tests 04/15/18 04/15/18 04/15/18 00:45 06:00 06:00 WBC 9.9 RBC 4.91 Hgb 15.9 Hct 48.4 MCV 98.6 H MCH 32.5 MCHC 32.9 RDW 13.7 Plt Count 235 MPV 10.8 Sodium 141 Potassium 4.2 Chloride 109 H Carbon Dioxide 20 L Anion Gap 12 BUN 20 H Creatinine 1.2 Creat Clearance w eGFR > 60 Random Glucose 96 Calcium 9.4 Total Bilirubin 0.8 Direct Bilirubin AST 99 H ALT 116 H D Alkaline Phosphatase 96 Total Protein 7.7 Albumin 3.7 Urine Color Yellow Urine Appearance Turbid Urine pH 5.0 Ur Specific [place] 1.033 Urine Protein 2+ H D Urine Glucose (UA) Negative Urine Ketones Negative Urine Blood 1+ H Urine Nitrite Negative Urine Bilirubin 2.0 Urine Urobilinogen 4.0 e.u/dl Ur Leukocyte Esterase Negative Urine WBC (Auto) 50 Urine RBC (Auto) 8 Hyaline Casts 62 Urine Mucus Moderate Urine Yeast Many RPR Titer 04/15/18 04/17/18 06:00 07:40 WBC RBC Hgb Hct MCV MCH MCHC RDW Plt Count MPV Sodium Potassium Chloride Carbon Dioxide Anion Gap BUN Creatinine Creat Clearance w eGFR Random Glucose Calcium Total Bilirubin 0.5 Direct Bilirubin 0.3 H AST 75 H D ALT 93 H Alkaline Phosphatase 81 D Total Protein 6.4 Albumin 2.8 L Urine Color Urine Appearance Urine pH Ur Specific [place] Urine Protein Urine Glucose (UA) Urine Ketones Urine Blood Urine Nitrite Urine Bilirubin Urine Urobilinogen Ur Leukocyte Esterase Urine WBC (Auto) Urine RBC (Auto) Hyaline Casts Urine Mucus Urine Yeast RPR Titer Nonreactive Assessment: 04/20/18 14:00 MEDICALLY STABLE Plan: D/C PT TODAY
--- NOTE | 2018-04-20 14:03 | DS ---
[facility] Detox Discharge Summary Admission Date: 04/14/18 Discharge Date: 04/20/18 - History Present History: Alcohol Dependence, Cocaine Dependence Additional Comments: DETOX COMPLETED. Pertinent Past History: PLEASE SEE DX BELOW - Physical Exam Results Vital Signs: Vital Signs Temperature 96.7 F L 04/20/18 09:13 Pulse Rate 70 04/20/18 09:13 Respiratory Rate 04/20/18 09:13 Blood Pressure 149/96 04/20/18 09:13 O2 Sat by Pulse Oximetry (%) Pertinent Admission Physical Exam Findings: WITHDRAWAL SX Laboratory Tests 04/15/18 04/15/18 04/15/18 00:45 06:00 06:00 WBC 9.9 RBC 4.91 Hgb 15.9 Hct 48.4 MCV 98.6 H MCH 32.5 MCHC 32.9 RDW 13.7 Plt Count 235 MPV 10.8 Sodium 141 Potassium 4.2 Chloride 109 H Carbon Dioxide 20 L Anion Gap 12 BUN 20 H Creatinine 1.2 Creat Clearance w eGFR > 60 Random Glucose 96 Calcium 9.4 Total Bilirubin 0.8 Direct Bilirubin AST 99 H ALT 116 H D Alkaline Phosphatase 96 Total Protein 7.7 Albumin 3.7 Urine Color Yellow Urine Appearance Turbid Urine pH 5.0 Ur Specific [place] 1.033 Urine Protein 2+ H D Urine Glucose (UA) Negative Urine Ketones Negative Urine Blood 1+ H Urine Nitrite Negative Urine Bilirubin 2.0 Urine Urobilinogen 4.0 e.u/dl Ur Leukocyte Esterase Negative Urine WBC (Auto) 50 Urine RBC (Auto) 8 Hyaline Casts 62 Urine Mucus Moderate Urine Yeast Many RPR Titer 04/15/18 04/17/18 06:00 07:40 WBC RBC Hgb Hct MCV MCH MCHC RDW Plt Count MPV Sodium Potassium Chloride Carbon Dioxide Anion Gap BUN Creatinine Creat Clearance w eGFR Random Glucose Calcium Total Bilirubin 0.5 Direct Bilirubin 0.3 H AST 75 H D ALT 93 H Alkaline Phosphatase 81 D Total Protein 6.4 Albumin 2.8 L Urine Color Urine Appearance Urine pH Ur Specific [place] Urine Protein Urine Glucose (UA) Urine Ketones Urine Blood Urine Nitrite Urine Bilirubin Urine Urobilinogen Ur Leukocyte Esterase Urine WBC (Auto) Urine RBC (Auto) Hyaline Casts Urine Mucus Urine Yeast RPR Titer Nonreactive - Treatment Hospital Course: Detox Protocol Followed, Detoxed Safely, Responded well, Discharged Condition Good - Medication Discharge Medications: Ambulatory Orders Oxycodone HCl 10 mg PO BID 04/14/18 Aspirin [Aspirin EC] 81 mg PO DAILY #30 tablet. 04/20/18 Diltiazem [Cardizem -] 30 mg PO TID #90 tablet 04/20/18 Lisinopril 10 mg PO DAILY #30 tablet 04/20/18 - Diagnosis (1) Alcohol dependence with uncomplicated withdrawal Status: Acute (2) Cocaine dependence Status: Acute Qualifiers: Substance use status: uncomplicated Qualified Code(s): F14.20 - Cocaine dependence, uncomplicated (3) Insomnia Status: Acute Qualifiers: Insomnia type: unspecified Qualified Code(s): G47.00 - Insomnia, unspecified (4) Nicotine dependence Status: Acute Qualifiers: Nicotine product type: cigarettes Substance use status: in withdrawal Qualified Code(s): F17.213 - Nicotine dependence, cigarettes, with withdrawal (5) Arthritis of right hip Status: Chronic (6) Essential hypertension Status: Chronic (7) Hepatitis C Status: Chronic Qualifiers: Viral hepatitis chronicity: chronic Hepatic coma status: without hepatic coma Qualified Code(s): B18.2 - Chronic viral hepatitis C (8) History of atrial fibrillation Status: Chronic (9) Hip pain, right Status: Chronic (10) Use of cane as ambulatory aid Status: Chronic - AMA Did Patient Leave Against Medical Advice: No
== END 2018-04-20 11:36 | disposition home or self-care (01) | DRG 774 ==
LOC: YASAS 10:15 → Y3N 15:34
PROC: HZ2ZZZZ Detoxification Services for Substance Abuse Treatment (ICD-10-PCS; principal; 2018-04-14)
DX: F10.230 Alcohol dependence with withdrawal, uncomplicated (principal); F14.20 Cocaine dependence, uncomplicated; F17.213 Nicotine dependence, cigarettes, with withdrawal; F19.24 Other psychoactive substance dependence with psychoactive substance-induced mood disorder; F32.9 Major depressive disorder, single episode, unspecified; I10 Essential (primary) hypertension; I48.91 Unspecified atrial fibrillation; G47.00 Insomnia, unspecified; B18.2 Chronic viral hepatitis C; M54.5 Low back pain; M13.851 Other specified arthritis, right hip; R26.89 Other abnormalities of gait and mobility; Z99.89 Dependence on other enabling machines and devices; Z79.82 Long term (current) use of aspirin
CPT/HCPCS: 36415; 80053; 80076; 81003; 81015; 85027; 86593; 93005; 93010; J0735

== ENCOUNTER 2018-08-08 11:58 | Inpatient (IN) | payer OTHER ==
[2018-08-08 12:31] VITALS: BMI 30.2
--- NOTE | 2018-08-08 14:17 | HP ---
CIWA Score Nausea/Vomitin-Mild Nausea/No Vomiting Muscle Tremors: 3 Anxiety: 3 Agitation: 0-Normal Activity Paroxysmal Sweats: 3 Orientation: 0-Oriented Tacttile Disturbances: 2-Mild Itch/Numbness/Burn Auditory Disturbances: 0-None Visual Disturbances: 0-None Headache: 3-Moderate CIWA-Ar Total Score: 15 - Admission Criteria OASAS Guidelines: Admission for Medically Managed Detox: Requires at least one of the followin. CIWA greater than 12 2. Seizures within the past 24 hours 3. Delirium tremens within the past 24 hours 4. Hallucinations within the past 24 hours 5. Acute intervention needed for co occurring medical disorder 6. Acute intervention needed for co occurring psychiatric disorder 7. Severe withdrawal that cannot be handled at a lower level of care (continued vomiting, continued diarrhea, abnormal vital signs) requiring intravenous medication and/or fluids 8. Admission ROS [facility] Chief Complaint: Alcohol withdrawal symptoms Allergies/Adverse Reactions: Allergies Allergy/AdvReac Type Severity Reaction Status Date / Time No Known Allergies Allergy Verified 08/08/18 13:18 History of Present Illness: 63 years old male with multiple admissions last from 04/14/2018 - 04/20/2018 is seeking admission to detox. Patient reports 18 months of sobriety. He has medical history of Hypertension, SVT, AFIB, Hep C, right hip arthritis and Depression. Patient has laceration on his right eyelid and left forehead above left eye brow. He denies suicidal ideation at this time. Patient's heart rate is 169. He is asymptomatic and reports that he is not compliant with his cardiac medications. His drug screen was positive for THC, Cocaine, BAR and BZO. Stat EKG initiated. Exam Limitations: No Limitations - Ebola screening Have you traveled outside of the country in the last 21 days: No (N) Have you had contact with anyone from an Ebola affected area: No Have you been sick,other than usual withdrawal symptoms: No Do you have a fever: No - Review of Systems Constitutional: Chills, Malaise, Changes in sleep EENT: reports: Other (laceration fro a fall to right eyelid and left forehead) Respiratory: reports: No Symptoms reported Cardiac: reports: No Symptoms Reported GI: reports: Poor Appetite, Poor Fluid Intake, Abdominal cramping : reports: No Symptoms Reported Musculoskeletal: reports: Back Pain, Joint Pain, Muscle Pain Integumentary: reports: Bruising, Dryness Neuro: reports: Tremors Endocrine: reports: No Symptoms Reported Hematology: reports: No Symptoms Reported Psychiatric: reports: Mood/Affect Appropiate, Anxious, Depressed Other Systems: Reviewed and Negative Patient History - Patient Medical History Hx Anemia: No Hx Asthma: No Hx Chronic Obstructive Pulmonary Disease (COPD): No Hx Cancer: No Hx Cardiac Disorders: Yes (atrial fibrilation, SVT) Hx Congestive Heart Failure: No Hx Hypertension: Yes (ON LISINOPRIL) Hx Hypercholesterolemia: No Hx Pacemaker: No HX Cerebrovascular Accident: No Hx Seizures: No Hx Dementia: No Hx Diabetes: No Hx Gastrointestinal Disorders: No Hx Liver Disease: No Hx Genitourinary Disorders: No Hx Sexually Transmitted Disorders: No Hx Renal Disease (ESRD): No Hx Thyroid Disease: No Hx Human Immunodeficiency Virus (HIV): No (LAST 2016 NEGATIVE) Hx Hepatitis C: Yes (Not treated) Hx Depression: Yes (Not on meds) Hx Suicide Attempt: No (Denies Suicidal ideation at this time) Hx Bipolar Disorder: No Hx Schizophrenia: No - Patient Surgical History Past Surgical History: Yes Hx Neurologic Surgery: No Hx Cataract Extraction: No Hx Cardiac Surgery: No Hx Lung Surgery: No Hx Breast Surgery: No Hx Breast Biopsy: No Hx Abdominal Surgery: Yes (splenectomy IN 2000) Hx Appendectomy: No Hx Cholecystectomy: No Hx Genitourinary Surgery: No Hx Section: No Hx Orthopedic Surgery: No Other Surgical History: bilateral inguinal hernia repair in 2011 Anesthesia Reaction: No - PPD History Previous Implant?: Yes Documented Results: Negative w/proof Implanted On Prior [facility] Admission?: Yes Date: 11/02/17 Results: NEGATIVE PPD to be Administered?: No - Reproductive History Patient is a Female of Child Bearing Age (11 -55 yrs old): No (Male) - Smoking Cessation Smoking history: Current every day smoker Have you smoked in the past 12 months: Yes Aproximately how many cigarettes per day: 5 Cigars Per Day: 0 Hx Chewing Tobacco Use: No Initiated information on smoking cessation: Yes 'Breaking Loose' booklet given: 08/08/18 - Substance & Tx. History Hx Alcohol Use: Yes Hx Substance Use: Yes Substance Use Type: Alcohol, Cocaine, Marijuana Hx Substance Use Treatment: Yes ([facility]) - Substances Abused Alcohol Route: Oral Frequency: Daily Amount used: 0.5 pint of vodka, 2-3 16oz of cans of beer Age of first use: 16 Date of Last Use: 08/07/18 Cocaine Route: Smoking Frequency: 1-2 times per week Amount used: 1 gram Age of first use: 24 Date of Last Use: 08/08/18 Marijuana/Hashish Route: Smoking Frequency: Daily Amount used: 1 joint Age of first use: 16 Date of Last Use: 08/07/18 Family Disease History - Family Disease History Family Disease History: Diabetes: Mother (HTN,ALCOHOL), Heart Disease: Father ( HTN,ALCOHOL), Mother, CA: Sister (BRAIN), Other: Mother, Brother (DRUG/ALCOHOL) Admission Physical Exam BHS - Vital Signs Vital Signs: Vital Signs - 24 hr 08/08/18 12:27 Temperature 97.9 F Pulse Rate 169 H Respiratory 18 Rate Blood Pressure 117/80 - Physical General Appearance: Yes: Moderate Distress, Irritable HEENTM: Yes: Normal ENT Inspection, Normal Voice Respiratory: Yes: Rapid RR Neck: Yes: Supple Breast: Yes: Breast Exam Deferred Cardiology: Yes: Tachycardia, Irregularly Irregular Abdominal: Yes: Normal Bowel Sounds, Soft Genitourinary: Yes: Within Normal Limits Back: Yes: Normal Inspection Musculoskeletal: Yes: Back pain, Muscle Pain, Muscle weakness Extremities: Yes: Normal Inspection Neurological: Yes: staff accountant II-XII NML intact, Fully Oriented, Alert, Motor Strength 5/5 Integumentary: Yes: Warm Lymphatic: Yes: Within Normal Limits - Diagnostic (1) Alcohol dependence with uncomplicated withdrawal Current Visit: Yes Status: Chronic (2) Cocaine dependence Current Visit: Yes Status: Chronic Qualifiers: Substance use status: uncomplicated Qualified Code(s): F14.20 - Cocaine dependence, uncomplicated (3) Nicotine dependence Current Visit: Yes Status: Chronic Qualifiers: Nicotine product type: cigarettes Substance use status: uncomplicated Qualified Code(s): F17.210 - Nicotine dependence, cigarettes, uncomplicated (4) Anxiety disorder Current Visit: Yes Status: Chronic Qualifiers: Anxiety disorder type: unspecified anxiety disorder Qualified Code(s): F41.9 - Anxiety disorder, unspecified (5) Arthritis of right hip Current Visit: Yes Status: Chronic (6) Cannabis dependence Current Visit: Yes Status: Chronic (7) Essential hypertension Current Visit: No Status: Chronic (8) Hepatitis C Current Visit: Yes Status: Chronic Qualifiers: Viral hepatitis chronicity: chronic Hepatic coma status: without hepatic coma Qualified Code(s): B18.2 - Chronic viral hepatitis C (9) History of atrial fibrillation Current Visit: Yes Status: Chronic (10) Use of cane as ambulatory aid Current Visit: Yes Status: Chronic (11) Depression (emotion) Current Visit: No Status: Suspected Qualifiers: Depression Type: dysthymia Qualified Code(s): F34.1 - Dysthymic disorder Cleared for Admission [facility] - Detox or Rehab [facility] Level of Care: Medically Managed Detox Regimen/Protocol: Librium [facility] Breath Alcohol Content Breath Alcohol Content: 0 Urine Drug Screen - Results Drug Screen Negative: No Urine Drug Screen Results: THC-Marijuana, PIYUSH-Cocaine, BAR-Barbiturates, BZO- Benzodiazepines
[2018-08-08] MEDS ORDERED: guaiFENesin/D-METHORPHAN HB 10 ML UNIT-DOSE CUPS PO PRN (14:55)
[2018-08-08] MEDS ORDERED: MAGNESIUM CITRATE 300 ML BOTTLE PO PRN (14:55)
[2018-08-08] MEDS ORDERED: ACETAMINOPHEN 325 MG TABLET (FP) PO PRN (14:55)
[2018-08-08] MEDS ORDERED: MAGNESIUM HYDROX 2400MG/30ML ORAL SUSPENSION 30 ML CUP PO PRN (14:55)
[2018-08-08] MEDS ORDERED: MENTHOL/PHENOL 1 EACH UD MM PRN (14:55)
[2018-08-08] MEDS ORDERED: MAG HYDROX/AL HYDROX/SIMETH 30 ML UNIT-DOSE CUP PO PRN (14:55)
[2018-08-08] MEDS ORDERED: NICOTINE POLACRILEX 2 MG GUM BUC PRN (14:55)
[2018-08-08] MEDS ORDERED: chlordiazePOXIDE HCL 25 MG CAPSULE PO PRN (14:55)
[2018-08-08] MEDS ORDERED: P-EPHED 60MG/TRIPROLIDI 2.5MG TABLET PO PRN (14:55)
[2018-08-08] MEDS ORDERED: LOPERAMIDE HCL 2 MG CAPSULE PO PRN (14:55)
[2018-08-08] MEDS: LISINOPRIL 10 MG TABLET (FP) PO SCH (15:50)
[2018-08-08] MEDS: ASPIRIN COATED 81 MG TABLET.EC PO SCH (15:50)
[2018-08-08] MEDS: dilTIAZem HCL 30 MG TABLET (FP) PO SCH ×2 (16:11→22:30)
[2018-08-08] MEDS: chlordiazePOXIDE HCL 25 MG CAPSULE PO SCH ×2 (17:45→22:30)
[2018-08-08] MEDS ORDERED: MELATONIN 5 MG TABLETS PO PRN (22:00)
[2018-08-08] MEDS: THIAMINE HCL 100 MG TABLET (FP) PO SCH (22:30)
[2018-08-09] MEDS: chlordiazePOXIDE HCL 25 MG CAPSULE PO SCH ×4 (05:53→22:10)
[2018-08-09] MEDS: dilTIAZem HCL 30 MG TABLET (FP) PO SCH ×3 (07:54→22:10)
[2018-08-09] MEDS: LISINOPRIL 10 MG TABLET (FP) PO SCH (10:36)
[2018-08-09] MEDS: PRENATAL VITAMINS W/ FOLIC ACID TABLET (FP) PO SCH (10:36)
[2018-08-09] MEDS: ASPIRIN COATED 81 MG TABLET.EC PO SCH (10:36)
[2018-08-09] MEDS: NICOTINE 14 MG/24 HOURS TOPICAL PATCH TD SCH (10:37)
[2018-08-09 10:58] LABS: ALBUMIN 3.1 g/dl (3.4-5.0); ALK PHOS 94 U/L (45-117); ANION GAP 7 MMOL/L (8-16); BILIRUBIN,TOTAL 0.9 mg/dL (0.2-1); BLOOD UREA NITROGEN 20 mg/dL (7-18); CALCIUM 8.2 mg/dL (8.5-10.1); CHLORIDE 110 mmol/L (98-107); CO2 24 mmol/L (21-32); CREATININE 0.9 mg/dL (0.55-1.3); GLUCOSE,RANDOM 94 mg/dL (74-106); POTASSIUM 4.3 mmol/L (3.5-5.1); SGOT/AST 90 U/L (15-37); SGPT/ALT 98 U/L (13-61); SODIUM 140 mmol/L (136-145); TOT PROT 6.4 g/dl (6.4-8.2)
[2018-08-09 11:09] LABS: HEMATOCRIT 43.5 % (35.4-49); HEMOGLOBIN 14.2 GM/dL (11.7-16.9); MCH 32.2 pg (25.7-33.7); MCHC 32.6 g/dl (32.0-35.9); MEAN CELL VOLUME 98.7 fl (80-96); MEAN PLT VOLUME 10.5 fl (7.5-11.1); PLATELET COUNT 206 K/MM3 (134-434); RBC 4.41 M/mm3 (4.00-5.60); RDW 13.9 % (11.9-15.9); WHITE BLOOD COUNT 5.8 K/mm3 (4.0-10.0)
--- NOTE | 2018-08-09 13:47 | PN ---
S CIWA - CIWA Score Nausea/Vomitin Muscle Tremors: 4-Moderate,w/Arms Extend Anxiety: 4-Mod. Anxious/Guarded Agitation: 2 Paroxysmal Sweats: 3 Orientation: 0-Oriented Tacttile Disturbances: 1-Very Mild Itch/Numbness Auditory Disturbances: 0-None Visual Disturbances: 0-None Headache: 1-Very Mild CIWA-Ar Total Score: 17 BHS Progress Note (SOAP) Subjective: Sweating, interrupted sleep. Patient has sutures (dissolving sutures) over right eyelid as per patient and sutures over left forehead inserted couple days ago at ER as per patient after he fell due to chronic hip pain (stated he has a bad hip and needs surgery). Uses cane for easier mobility. Objective: 08/09/18 13:46 Last Vital Signs Temp Pulse Resp BP Pulse Ox 97.3 F L 67 18 138/81 08/09/18 09:13 08/09/18 09:13 08/09/18 09:13 08/09/18 09:13 Laboratory Tests 08/09/18 08/09/18 08/09/18 07:50 07:50 07:50 WBC 5.8 RBC 4.41 Hgb 14.2 Hct 43.5 MCV 98.7 H MCH 32.2 MCHC 32.6 RDW 13.9 Plt Count 206 MPV 10.5 Sodium 140 Potassium 4.3 Chloride 110 H Carbon Dioxide 24 Anion Gap 7 L BUN 20 H Creatinine 0.9 Creat Clearance w eGFR > 60 Random Glucose 94 Calcium 8.2 L Total Bilirubin 0.9 AST 90 H ALT 98 H Alkaline Phosphatase 94 Total Protein 6.4 Albumin 3.1 L RPR Titer Nonreactive Labs reviewed: bun 20 Assessment: 08/09/18 13:47 Withdrawal symptoms Noted with azotemia Plan: Continue detox Azotemia: encouraged PO water intake
--- NOTE | 2018-08-09 16:58 | EKG ---
Test Reason : Blood Pressure : / mmHG Vent. Rate : 075 BPM Atrial Rate : 075 BPM P-R Int : 178 ms QRS Dur : 110 ms QT Int : 418 ms P-R-T Axes : 066 -47 055 degrees QTc Int : 466 ms NORMAL SINUS RHYTHM POSSIBLE LEFT ATRIAL ENLARGEMENT LEFT ANTERIOR FASCICULAR BLOCK ANTEROSEPTAL INFARCT (CITED ON OR BEFORE 31-OCT-2017) ABNORMAL ECG WHEN COMPARED WITH ECG OF 14-APR-2018 19:34, SINUS RHYTHM HAS REPLACED ATRIAL FIBRILLATION VENT. RATE HAS DECREASED BY 39 BPM QUESTIONABLE CHANGE IN INITIAL FORCES OF ANTERIOR LEADS Confirmed by MD Maguire Daniel ([id number]) on 08/09/2018 4:58:39 PM Referred By: Confirmed By:Frank Maguire MD
[2018-08-09] MEDS: THIAMINE HCL 100 MG TABLET (FP) PO SCH (22:10)
[2018-08-09] MEDS: IBUPROFEN 400 MG TABLET (FP) PO PRN (22:11)
[2018-08-10] MEDS: chlordiazePOXIDE HCL 25 MG CAPSULE PO SCH ×2 (04:20→10:12)
[2018-08-10] MEDS: IBUPROFEN 400 MG TABLET (FP) PO PRN ×2 (04:20→17:25)
[2018-08-10] MEDS: dilTIAZem HCL 30 MG TABLET (FP) PO SCH ×3 (05:37→22:20)
[2018-08-10] MEDS: ASPIRIN COATED 81 MG TABLET.EC PO SCH (10:12)
[2018-08-10] MEDS: PRENATAL VITAMINS W/ FOLIC ACID TABLET (FP) PO SCH (10:12)
[2018-08-10] MEDS: LISINOPRIL 10 MG TABLET (FP) PO SCH (10:12)
[2018-08-10] MEDS: NICOTINE 14 MG/24 HOURS TOPICAL PATCH TD SCH (10:13)
--- NOTE | 2018-08-10 14:26 | PN ---
S CIWA - CIWA Score Nausea/Vomitin-No Nausea/No Vomiting Muscle Tremors: 3 Anxiety: 3 Agitation: 2 Paroxysmal Sweats: No Perspiration Orientation: 0-Oriented Tacttile Disturbances: 2-Mild Itch/Numbness/Burn Auditory Disturbances: 0-None Visual Disturbances: 2-Mild Sensitivity Headache: 0-None Present CIWA-Ar Total Score: 12 BHS Progress Note (SOAP) Subjective: Body Aches, Stomach Cramping, Fatigue, Interrupted Sleep, Tremors. Objective: PATIENT A & O X 3. NO ACUTE DISTRESS. PATIENT DENIES CHEST PAIN. 08/10/18 14:24 Vital Signs Temperature 98.4 F 08/10/18 13:25 Pulse Rate 72 08/10/18 13:25 Respiratory Rate 20 08/10/18 13:25 Blood Pressure 134/70 08/10/18 13:25 O2 Sat by Pulse Oximetry (%) Laboratory Tests 08/09/18 08/09/18 08/09/18 07:50 07:50 07:50 WBC 5.8 RBC 4.41 Hgb 14.2 Hct 43.5 MCV 98.7 H MCH 32.2 MCHC 32.6 RDW 13.9 Plt Count 206 MPV 10.5 Sodium 140 Potassium 4.3 Chloride 110 H Carbon Dioxide 24 Anion Gap 7 L BUN 20 H Creatinine 0.9 Creat Clearance w eGFR > 60 Random Glucose 94 Calcium 8.2 L Total Bilirubin 0.9 AST 90 H ALT 98 H Alkaline Phosphatase 94 Total Protein 6.4 Albumin 3.1 L RPR Titer Nonreactive LABS NOTED. Assessment: 08/10/18 14:24 WITHDRAWAL SYMPTOMS. Plan: CONTINUE DETOX. PRN FLEXERIL FOR BODY ACHES/ /MUSCLE SPASMS.
[2018-08-10] MEDS: chlordiazePOXIDE 5 MG CAPSULE PO SCH ×2 (17:26→22:20)
[2018-08-10] MEDS: CYCLOBENZAPRINE HCL 10 MG TABLET (FP) PO PRN (22:20)
[2018-08-10] MEDS: THIAMINE HCL 100 MG TABLET (FP) PO SCH (22:20)
[2018-08-11] MEDS: IBUPROFEN 400 MG TABLET (FP) PO PRN ×3 (03:14→22:27)
[2018-08-11] MEDS: chlordiazePOXIDE 5 MG CAPSULE PO SCH ×2 (05:18→10:31)
[2018-08-11] MEDS: dilTIAZem HCL 30 MG TABLET (FP) PO SCH ×3 (05:18→22:24)
[2018-08-11] MEDS: ASPIRIN COATED 81 MG TABLET.EC PO SCH (10:31)
[2018-08-11] MEDS: PRENATAL VITAMINS W/ FOLIC ACID TABLET (FP) PO SCH (10:31)
[2018-08-11] MEDS: LISINOPRIL 10 MG TABLET (FP) PO SCH (10:31)
[2018-08-11] MEDS: LIDOCAINE 5% TOPICAL PATCH TP SCH (10:32)
[2018-08-11] MEDS: NICOTINE 14 MG/24 HOURS TOPICAL PATCH TD SCH (10:33)
--- NOTE | 2018-08-11 11:42 | PN ---
BHS Progress Note (SOAP) Subjective: feeling better sleep better at night no tremor less sweat social with peers in day room Objective: 08/11/18 11:42 Vital Signs Temperature 97.0 F L 08/11/18 09:11 Pulse Rate 67 08/11/18 09:11 Respiratory Rate 18 08/11/18 09:11 Blood Pressure 144/92 08/11/18 09:11 O2 Sat by Pulse Oximetry (%) Laboratory Last Values WBC 5.8 K/mm3 (4.0-10.0) 08/09/18 07:50 RBC 4.41 M/mm3 (4.00-5.60) 08/09/18 07:50 Hgb 14.2 GM/dL (11.7-16.9) 08/09/18 07:50 Hct 43.5 % (35.4-49) 08/09/18 07:50 MCV 98.7 fl (80-96) H 08/09/18 07:50 MCH 32.2 pg (25.7-33.7) 08/09/18 07:50 MCHC 32.6 g/dl (32.0-35.9) 08/09/18 07:50 RDW 13.9 % (11.9-15.9) 08/09/18 07:50 Plt Count 206 K/MM3 (134-434) 08/09/18 07:50 MPV 10.5 fl (7.5-11.1) 08/09/18 07:50 Sodium 140 mmol/L (136-145) 08/09/18 07:50 Potassium 4.3 mmol/L (3.5-5.1) 08/09/18 07:50 Chloride 110 mmol/L (98-107) H 08/09/18 07:50 Carbon Dioxide 24 mmol/L (21-32) 08/09/18 07:50 Anion Gap 7 MMOL/L (8-16) L 08/09/18 07:50 BUN 20 mg/dL (7-18) H 08/09/18 07:50 Creatinine 0.9 mg/dL (0.55-1.3) 08/09/18 07:50 Creat Clearance w eGFR > 60 (>60) 08/09/18 07:50 Random Glucose 94 mg/dL (74-106) 08/09/18 07:50 Calcium 8.2 mg/dL (8.5-10.1) L 08/09/18 07:50 Total Bilirubin 0.9 mg/dL (0.2-1) 08/09/18 07:50 AST 90 U/L (15-37) H 08/09/18 07:50 ALT 98 U/L (13-61) H 08/09/18 07:50 Alkaline Phosphatase 94 U/L (45-117) 08/09/18 07:50 Total Protein 6.4 g/dl (6.4-8.2) 08/09/18 07:50 Albumin 3.1 g/dl (3.4-5.0) L 08/09/18 07:50 RPR Titer Nonreactive (NONREACTIVE) 08/09/18 07:50 lab noted Assessment: 08/11/18 11:46 mild withdrawal sx hypertension Plan: medically supervised detox
--- NOTE | 2018-08-11 11:53 | PN ---
S Progress Note Note: PATIENT CONTINUES WITH DETOX REGIMEN. C/O BODY ACHES, INTERRUPTED SLEEP, NIGHT SWEATS. Vital Signs Temperature 97.0 F L 08/11/18 09:11 Pulse Rate 67 08/11/18 09:11 Respiratory Rate 18 08/11/18 09:11 Blood Pressure 144/92 08/11/18 09:11 O2 Sat by Pulse Oximetry (%) Laboratory Tests 08/09/18 08/09/18 08/09/18 07:50 07:50 07:50 WBC 5.8 RBC 4.41 Hgb 14.2 Hct 43.5 MCV 98.7 H MCH 32.2 MCHC 32.6 RDW 13.9 Plt Count 206 MPV 10.5 Sodium 140 Potassium 4.3 Chloride 110 H Carbon Dioxide 24 Anion Gap 7 L BUN 20 H Creatinine 0.9 Creat Clearance w eGFR > 60 Random Glucose 94 Calcium 8.2 L Total Bilirubin 0.9 AST 90 H ALT 98 H Alkaline Phosphatase 94 Total Protein 6.4 Albumin 3.1 L RPR Titer Nonreactive PE: ALERT AND ORIENTED X 3 SKIN WARM AND DRY + SUTURES TO RIGHT EYE BROW AND MID FOREHEAD INTACT, NO REDNESS/SWELLING EXT FULL ROM, AMB AD RISHABH A/P WITHDRAWAL SX CONTINUE DETOX ENCOURAGE ORAL HYDRATION FOR D/C IN AM ALL HTN MEDS SENT TO PHARMACY BY PCP 08/05/18 CONTINUE TO MONITOR CLINICALLY
[2018-08-11] MEDS: CYCLOBENZAPRINE HCL 10 MG TABLET (FP) PO PRN ×2 (11:58→22:24)
[2018-08-11] MEDS: chlordiazePOXIDE HCL 10 MG CAPSULE PO SCH ×2 (17:34→22:24)
[2018-08-11] MEDS ORDERED: LIDOCAINE PATCH REMOVAL MC SCH (22:00)
[2018-08-11] MEDS: THIAMINE HCL 100 MG TABLET (FP) PO SCH (22:24)
[2018-08-12] MEDS: dilTIAZem HCL 30 MG TABLET (FP) PO SCH (05:27)
[2018-08-12] MEDS: chlordiazePOXIDE HCL 10 MG CAPSULE PO SCH ×2 (05:27→10:29)
[2018-08-12 09:38] VITALS: BP 121/74; PULSE 60; TEMP 98.6
[2018-08-12] MEDS: LISINOPRIL 10 MG TABLET (FP) PO SCH (10:29)
[2018-08-12] MEDS: ASPIRIN COATED 81 MG TABLET.EC PO SCH (10:29)
[2018-08-12] MEDS: NICOTINE 14 MG/24 HOURS TOPICAL PATCH TD SCH (10:29)
[2018-08-12] MEDS: PRENATAL VITAMINS W/ FOLIC ACID TABLET (FP) PO SCH (10:29)
[2018-08-12] MEDS: LIDOCAINE 5% TOPICAL PATCH TP SCH ×2 (10:29→10:35)
[2018-08-12] MEDS: IBUPROFEN 400 MG TABLET (FP) PO PRN (10:32)
[2018-08-12] MEDS: CYCLOBENZAPRINE HCL 10 MG TABLET (FP) PO PRN (10:34)
--- NOTE | 2018-08-12 10:59 | DS ---
[facility] Detox Discharge Summary Admission Date: 08/08/18 Discharge Date: 08/12/18 - History Present History: Alcohol Dependence, Cannabis Dependence, Cocaine Dependence Pertinent Past History: PATIENT COMPLETED DETOX REGIMEN WITHOUT ADVERSE EFFECT. PATIENT CLINICALLY STABLE AND DENIES SI/HI. PATIENT ACCEPTED REHAB REFERRAL TO [facility] AND ENCOURAGED TO COMPLETE REHAB TO PREVENT RELAPSE. D/C INSTRUCTIONS PROVIDED TO PATIENT BY STAFF. - Physical Exam Results Vital Signs: Vital Signs Temperature 98.6 F 08/12/18 09:37 Pulse Rate 60 08/12/18 09:37 Respiratory Rate 18 08/12/18 09:37 Blood Pressure 121/74 08/12/18 09:37 O2 Sat by Pulse Oximetry (%) - Treatment Hospital Course: Detox Protocol Followed, Detoxed Safely, Responded well, Discharged Condition Good, Rehab Referral Accepted Patient has Accepted a Rehab Referral to: [facility] - Medication Discharge Medications: Ambulatory Orders Aspirin [Aspirin EC] 81 mg PO DAILY #30 tablet. 04/20/18 Diltiazem [Cardizem -] 30 mg PO TID #90 tablet 08/11/18 Lisinopril 10 mg PO DAILY #30 tablet 08/11/18 - Diagnosis (1) Alcohol dependence with uncomplicated withdrawal Current Visit: Yes Status: Resolved (2) Arthritis of right hip Current Visit: Yes Status: Chronic (3) Cocaine dependence Current Visit: Yes Status: Chronic Qualifiers: Substance use status: uncomplicated Qualified Code(s): F14.20 - Cocaine dependence, uncomplicated (4) Essential hypertension Current Visit: Yes Status: Chronic - AMA Did Patient Leave Against Medical Advice: No
== END 2018-08-12 12:15 | disposition other institution (70) | DRG 774 ==
LOC: YASAS 11:58 → Y3N 15:05
PROC: HZ2ZZZZ Detoxification Services for Substance Abuse Treatment (ICD-10-PCS; principal; 2018-08-08)
DX: F10.230 Alcohol dependence with withdrawal, uncomplicated (principal); F14.20 Cocaine dependence, uncomplicated; F12.20 Cannabis dependence, uncomplicated; F17.210 Nicotine dependence, cigarettes, uncomplicated; F41.9 Anxiety disorder, unspecified; F34.1 Dysthymic disorder; I10 Essential (primary) hypertension; M13.851 Other specified arthritis, right hip; I48.91 Unspecified atrial fibrillation; R26.2 Difficulty in walking, not elsewhere classified; Z99.89 Dependence on other enabling machines and devices
CPT/HCPCS: 36415; 80053; 85027; 86593; 93005; 93010

== ENCOUNTER 2018-08-12 13:28 | Inpatient (IN) | payer OTHER ==
[2018-08-12 14:30] VITALS: BMI 28.7
[2018-08-12] MEDS ORDERED: MAGNESIUM CITRATE 300 ML BOTTLE PO PRN (14:58)
[2018-08-12] MEDS ORDERED: MAGNESIUM HYDROX 2400MG/30ML ORAL SUSPENSION 30 ML CUP PO PRN (14:58)
[2018-08-12] MEDS ORDERED: MENTHOL/PHENOL 1 EACH UD MM PRN (14:58)
[2018-08-12] MEDS ORDERED: ACETAMINOPHEN 325 MG TABLET (FP) PO PRN (14:58)
[2018-08-12] MEDS ORDERED: LOPERAMIDE HCL 2 MG CAPSULE PO PRN (14:58)
[2018-08-12] MEDS ORDERED: MAG HYDROX/AL HYDROX/SIMETH 30 ML UNIT-DOSE CUP PO PRN (14:58)
[2018-08-12] MEDS ORDERED: NICOTINE POLACRILEX 2 MG GUM BUC PRN (14:58)
[2018-08-12] MEDS ORDERED: guaiFENesin/D-METHORPHAN HB 10 ML UNIT-DOSE CUPS PO PRN (14:58)
[2018-08-12] MEDS ORDERED: P-EPHED 60MG/TRIPROLIDI 2.5MG TABLET PO PRN (14:58)
--- NOTE | 2018-08-12 18:57 | PN ---
S Progress Note Note: Psychiatric nurse practitioner note: Patient refused to be seen by psychiatric nurse practitioner for completion of S psychiatric admission note.
[2018-08-12] MEDS: THIAMINE HCL 100 MG TABLET (FP) PO SCH (21:45)
[2018-08-12] MEDS: IBUPROFEN 600 MG TABLET (FP) PO PRN (21:46)
[2018-08-12] MEDS: CYCLOBENZAPRINE HCL 5 MG TABLET PO PRN (21:46)
[2018-08-12] MEDS ORDERED: MELATONIN 5 MG TABLETS PO PRN (22:00)
[2018-08-13] MEDS: PRENATAL VITAMINS W/ FOLIC ACID TABLET (FP) PO SCH (10:06)
[2018-08-13] MEDS: IBUPROFEN 600 MG TABLET (FP) PO PRN ×2 (10:07→21:49)
[2018-08-13] MEDS: BACITRACIN 0.9 GM PACKET TP SCH (10:07)
[2018-08-13] MEDS: CYCLOBENZAPRINE HCL 5 MG TABLET PO PRN ×2 (10:07→21:49)
[2018-08-13] MEDS: THIAMINE HCL 100 MG TABLET (FP) PO SCH (21:48)
[2018-08-14] MEDS: IBUPROFEN 600 MG TABLET (FP) PO PRN ×2 (10:13→21:50)
[2018-08-14] MEDS: CYCLOBENZAPRINE HCL 5 MG TABLET PO PRN ×2 (10:13→21:50)
[2018-08-14] MEDS: BACITRACIN 0.9 GM PACKET TP SCH (10:13)
[2018-08-14] MEDS: PRENATAL VITAMINS W/ FOLIC ACID TABLET (FP) PO SCH (10:14)
--- NOTE | 2018-08-14 11:40 | HP ---
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 Smokes 5 cigarettes daily Psychiatric History: Denies previous psychiatric history but reports being treated with Valium for anxiety and insomnia while in inpatient rehab in the past. Told senior technical writer that recently his primary care physician gave him a referral for a psychiatist for evaluation of depression and anxiety. He said that he has been calling that psychiatrist and has not received a call back. At present, reports feeling angry, irritable and frustrated Physical/Sexual Abuse/Trauma History: Denies history of physical, sexual abuse as well as DV relationship Additional Comment: Reports history of multiple arrests including 6 felony convictions. Denies being on parole/probation at present Vital Signs: Vital Signs - 24 hr 08/14/18 08/14/18 08/14/18 00:30 03:30 07:02 Temperature 97.4 F L Pulse Rate 63 Respiratory 16 18 16 Rate Blood Pressure 143/95 Allergies/Adverse Reactions: Allergies Allergy/AdvReac Type Severity Reaction Status Date / Time No Known Allergies Allergy Verified 08/08/18 13:18 Date of last physical exam: 08/08/18 Concur with the findings of this exam: Yes - Substance Abuse/Tx History Hx Alcohol Use: Yes Hx Substance Use: Yes Substance Use Type: Alcohol (Started drinking alcohol at age 16, consumes half a pint of vodka & 2-3x 16 oz of beer daily. Last drank on 08/07/18), Cocaine ( Started smoking crack cocaine at age 24, consumes one gram 1-2 weekly. Last smoked on 08/08/18), Marijuana (Started smoking marijuana at age 16, consumes one joint daily. Last smoked on 08/07/18) Hx Substance Use Treatment: Yes (Multiple(10) previous inpt detox & 2 inpt rehab admissions @ [facility]) Mental Status Exam - Mental Status Exam Alert and Oriented to: Time, Place, Person Cognitive Function: Fair Patient Appearance: Well Groomed Mood: Hopeful, Euthymic Affect: Appropriate Patient Behavior: Cooperative Speech Pattern: Clear Voice Loudness: Normal Thought Process: Intact Thought Disorder: Present Hallucinations: Denies Suicidal Ideation: Denies Homicidal Ideation: Denies Insight/Judgement: Fair Sleep: Poorly Appetite: Good Muscle strength/Tone: Normal Gait/Station: Other (uses a cane as ambulatory aid due to osteoarthritis of right hip(pending surgery)) Psychiatric Findings - Problem List ([facility] 1, 2,3) (1) Alcohol dependence Current Visit: No Status: Acute (2) Cocaine dependence Current Visit: No Status: Acute Qualifiers: Substance use status: uncomplicated Qualified Code(s): F14.20 - Cocaine dependence, uncomplicated (3) Cannabis dependence Current Visit: No Status: Acute (4) Nicotine dependence Current Visit: No Status: Chronic Qualifiers: Nicotine product type: cigarettes Substance use status: uncomplicated Qualified Code(s): F17.210 - Nicotine dependence, cigarettes, uncomplicated (5) Substance induced mood disorder Current Visit: No Status: Acute (6) Substance-induced sleep disorder Current Visit: No Status: Acute (7) Arthritis of right hip Current Visit: No Status: Chronic (8) Essential hypertension Current Visit: No Status: Chronic (9) Hepatitis C Current Visit: No Status: Chronic Qualifiers: Viral hepatitis chronicity: chronic Hepatic coma status: without hepatic coma Qualified Code(s): B18.2 - Chronic viral hepatitis C (10) History of atrial fibrillation Current Visit: No Status: Chronic (11) History of bilateral inguinal hernia repair Current Visit: No Status: Chronic (12) History of splenectomy Current Visit: No Status: Resolved - Initial Treatment Plan Initial Treatment Plan: 1) Start Belsomra 10 mg po HS prn for insomnia. 2) Monitor progress
[2018-08-14] MEDS: THIAMINE HCL 100 MG TABLET (FP) PO SCH (21:48)
[2018-08-14] MEDS: SUVOREXANT 10 MG TABLET PO PRN (21:50)
[2018-08-15] MEDS: PRENATAL VITAMINS W/ FOLIC ACID TABLET (FP) PO SCH (10:20)
[2018-08-15] MEDS: CYCLOBENZAPRINE HCL 5 MG TABLET PO PRN ×2 (10:22→21:48)
[2018-08-15] MEDS: IBUPROFEN 600 MG TABLET (FP) PO PRN ×2 (10:50→21:46)
[2018-08-15] MEDS: BACITRACIN 0.9 GM PACKET TP SCH (10:50)
[2018-08-15] MEDS: THIAMINE HCL 100 MG TABLET (FP) PO SCH (21:46)
[2018-08-15] MEDS: SUVOREXANT 10 MG TABLET PO PRN (21:47)
[2018-08-16] MEDS: BACITRACIN 0.9 GM PACKET TP SCH (10:18)
[2018-08-16] MEDS: PRENATAL VITAMINS W/ FOLIC ACID TABLET (FP) PO SCH (10:18)
[2018-08-16] MEDS: IBUPROFEN 600 MG TABLET (FP) PO PRN ×2 (10:19→21:48)
[2018-08-16] MEDS: CYCLOBENZAPRINE HCL 5 MG TABLET PO PRN ×2 (10:19→21:46)
[2018-08-16] MEDS ORDERED: LISINOPRIL 10 MG TABLET (FP) PO SCH (11:00)
[2018-08-16] MEDS: amLODIPine BESYLATE 5 MG TABLET (FP) PO SCH (14:15)
[2018-08-16] MEDS: THIAMINE HCL 100 MG TABLET (FP) PO SCH (21:45)
[2018-08-16] MEDS: SUVOREXANT 10 MG TABLET PO PRN (21:47)
[2018-08-17] MEDS: PRENATAL VITAMINS W/ FOLIC ACID TABLET (FP) PO SCH (10:11)
[2018-08-17] MEDS: BACITRACIN 0.9 GM PACKET TP SCH (10:11)
[2018-08-17] MEDS: LISINOPRIL 20 MG TABLET (FP) PO SCH (10:11)
[2018-08-17] MEDS: amLODIPine BESYLATE 5 MG TABLET (FP) PO SCH (10:11)
[2018-08-17] MEDS: IBUPROFEN 600 MG TABLET (FP) PO PRN ×2 (10:12→21:50)
[2018-08-17] MEDS: CYCLOBENZAPRINE HCL 5 MG TABLET PO PRN ×2 (10:12→21:49)
[2018-08-17] MEDS: THIAMINE HCL 100 MG TABLET (FP) PO SCH (21:49)
[2018-08-17] MEDS: SUVOREXANT 10 MG TABLET PO PRN (21:49)
[2018-08-18] MEDS: PRENATAL VITAMINS W/ FOLIC ACID TABLET (FP) PO SCH (10:25)
[2018-08-18] MEDS: BACITRACIN 0.9 GM PACKET TP SCH (10:25)
[2018-08-18] MEDS: amLODIPine BESYLATE 5 MG TABLET (FP) PO SCH (10:25)
[2018-08-18] MEDS: LISINOPRIL 20 MG TABLET (FP) PO SCH (10:25)
[2018-08-18] MEDS: IBUPROFEN 600 MG TABLET (FP) PO PRN ×2 (10:26→21:39)
[2018-08-18] MEDS: CYCLOBENZAPRINE HCL 5 MG TABLET PO PRN ×2 (10:28→21:39)
[2018-08-18] MEDS: THIAMINE HCL 100 MG TABLET (FP) PO SCH (21:39)
[2018-08-19] MEDS: BACITRACIN 0.9 GM PACKET TP SCH (10:40)
[2018-08-19] MEDS: amLODIPine BESYLATE 5 MG TABLET (FP) PO SCH (10:40)
[2018-08-19] MEDS: LISINOPRIL 20 MG TABLET (FP) PO SCH (10:40)
[2018-08-19] MEDS: PRENATAL VITAMINS W/ FOLIC ACID TABLET (FP) PO SCH (10:40)
[2018-08-19] MEDS: CYCLOBENZAPRINE HCL 5 MG TABLET PO PRN ×2 (10:41→21:48)
[2018-08-19] MEDS: IBUPROFEN 600 MG TABLET (FP) PO PRN (10:41)
[2018-08-19] MEDS: THIAMINE HCL 100 MG TABLET (FP) PO SCH (21:46)
[2018-08-19] MEDS: SUVOREXANT 10 MG TABLET PO PRN (21:47)
[2018-08-20] MEDS: amLODIPine BESYLATE 5 MG TABLET (FP) PO SCH (10:25)
[2018-08-20] MEDS: PRENATAL VITAMINS W/ FOLIC ACID TABLET (FP) PO SCH (10:25)
[2018-08-20] MEDS: LISINOPRIL 20 MG TABLET (FP) PO SCH (10:25)
[2018-08-20] MEDS: BACITRACIN 0.9 GM PACKET TP SCH (10:25)
[2018-08-20] MEDS: CYCLOBENZAPRINE HCL 5 MG TABLET PO PRN ×2 (10:26→21:49)
[2018-08-20] MEDS: THIAMINE HCL 100 MG TABLET (FP) PO SCH (21:49)
[2018-08-20] MEDS: SUVOREXANT 10 MG TABLET PO PRN (21:50)
[2018-08-21] MEDS: PRENATAL VITAMINS W/ FOLIC ACID TABLET (FP) PO SCH (10:11)
[2018-08-21] MEDS: amLODIPine BESYLATE 5 MG TABLET (FP) PO SCH (10:11)
[2018-08-21] MEDS: LISINOPRIL 20 MG TABLET (FP) PO SCH (10:11)
[2018-08-21] MEDS: CYCLOBENZAPRINE HCL 5 MG TABLET PO PRN ×2 (10:13→22:03)
[2018-08-21] MEDS: BACITRACIN 0.9 GM PACKET TP SCH (11:42)
[2018-08-21] MEDS: THIAMINE HCL 100 MG TABLET (FP) PO SCH (22:03)
[2018-08-21] MEDS: SUVOREXANT 10 MG TABLET PO PRN (22:04)
[2018-08-22] MEDS: amLODIPine BESYLATE 5 MG TABLET (FP) PO SCH (10:46)
[2018-08-22] MEDS: LISINOPRIL 20 MG TABLET (FP) PO SCH (10:46)
[2018-08-22] MEDS: PRENATAL VITAMINS W/ FOLIC ACID TABLET (FP) PO SCH (10:46)
[2018-08-22] MEDS: BACITRACIN 0.9 GM PACKET TP SCH (10:46)
[2018-08-22] MEDS: CYCLOBENZAPRINE HCL 5 MG TABLET PO PRN ×2 (10:47→21:59)
[2018-08-22] MEDS: THIAMINE HCL 100 MG TABLET (FP) PO SCH (21:57)
[2018-08-22] MEDS: SUVOREXANT 10 MG TABLET PO PRN (21:59)
[2018-08-23] MEDS: amLODIPine BESYLATE 5 MG TABLET (FP) PO SCH (10:54)
[2018-08-23] MEDS: PRENATAL VITAMINS W/ FOLIC ACID TABLET (FP) PO SCH (10:54)
[2018-08-23] MEDS: LISINOPRIL 20 MG TABLET (FP) PO SCH (10:54)
[2018-08-23] MEDS: BACITRACIN 0.9 GM PACKET TP SCH (10:54)
[2018-08-23] MEDS: CYCLOBENZAPRINE HCL 5 MG TABLET PO PRN ×2 (10:55→21:59)
[2018-08-23] MEDS: THIAMINE HCL 100 MG TABLET (FP) PO SCH (21:59)
[2018-08-23] MEDS ORDERED: SUVOREXANT 10 MG TABLET PO PRN (22:00)
[2018-08-24 06:59] VITALS: BP 139/89; PULSE 66; TEMP 97.4
--- NOTE | 2018-08-24 09:24 | PN ---
Psychiatric Progress Note Vital Signs: Vital Signs Period Temp Pulse Resp BP Sys/Umanzor Pulse Ox Last 24 Hr 97.4 F 66-79 18-18 138-139/88-89 Date of Session: 08/24/18 Chief Complaint:: Discharge Note HPI: Patient addresing alcohol, cocaine and cannabis comorbid with nicotine dependence, substance-indced mood disorder and substance-induced sleep disorder ROS: Arthritis right hip, HTN, Hep C were medically mananaged Current Medications: Active Medications Generic Name Dose Route Start Last Admin Trade Name Freq PRN Reason Stop Dose Admin Acetaminophen 650 mg 08/12/18 14:58 Tylenol - PO Q4H PRN FEVER Al Hydroxide/Mg Hydroxide 30 ml 08/12/18 14:58 Mylanta Oral Suspension - PO Q6H PRN DYSPEPSIA Amlodipine Besylate 5 mg 08/16/18 14:00 08/23/18 10:54 Norvasc - PO 5 mg DAILY ANTELMO Administration Bacitracin 0.9 gm 08/13/18 10:00 08/23/18 10:54 Bacitracin - TP Not Given DAILY ANTELMO Cyclobenzaprine HCl 5 mg 08/12/18 14:59 08/23/18 21:59 Cyclobenzaprine Hcl PO 5 mg TID PRN Administration MUSCLE SPASMS Eucalyptus/Menthol/Phenol/Sorbitol 1 each 08/12/18 14:58 Cepastat Lozenge - MM Q4H PRN SORE THROAT Guaifenesin 10 ml 08/12/18 14:58 Robitussin Dm - PO Q6H PRN COUGH Ibuprofen 600 mg 08/12/18 14:58 08/19/18 10:41 Motrin - PO 600 mg Q6H PRN Administration Pain Level 4-6 Lisinopril 20 mg 08/17/18 10:00 08/23/18 10:54 Prinivil PO 20 mg DAILY ANTELMO Administration Loperamide HCl 4 mg 08/12/18 14:58 Imodium - PO Q6H PRN DIARRHEA Magnesium Citrate 300 ml 08/12/18 14:58 Citroma - PO Q48H PRN CONSTIPATION Magnesium Hydroxide 30 ml 08/12/18 14:58 Milk Of Magnesia - PO DAILY PRN CONSTIPATION Nicotine Polacrilex 2 mg 08/12/18 14:58 Nicorette Gum - BUC Q2H PRN NICOTINE REPLACEMENT RX Multivit/Folic Acid/Iron 1 tab 08/13/18 10:00 08/23/18 10:54 Vitamins ([facility]) - PO 1 tab DAILY ANTELMO Administration Pseudoephedrine/Triprolidine 1 combo 08/12/18 14:58 Actifed - PO TID PRN NASAL CONGESTION Suvorexant 10 mg 08/23/18 22:00 08/23/18 21:59 Belsomra PO 08/26/18 21:59 10 mg HS PRN Administration INSOMNIA Thiamine HCl 100 mg 08/12/18 22:00 08/23/18 21:59 Vitamin B1 - PO 100 mg HS ANTELMO Administration Current Side Effect: No Lab tests ordered: Yes Lab tests reviewed: Yes Provider note:: Patient has completed this program today. He has met his treatment goals and will continue to address his issues in outpatient treatment at [facility]. 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 He is stable for discharge today Total face to face time:: 35 Mental Status Exam - Mental Status Exam Alert and Oriented to: Time, Place, Person Cognitive Function: Fair Patient Appearance: Well Groomed Mood: Hopeful, Euthymic Affect: Appropriate Patient Behavior: Cooperative Speech Pattern: Clear Voice Loudness: Normal Thought Process: Intact, Goal Oriented Thought Disorder: Not Present Hallucinations: Denies Suicidal Ideation: Denies Homicidal Ideation: Denies Insight/Judgement: Fair Sleep: Fair Appetite: Good Muscle strength/Tone: Normal Gait/Station: Other (Uses a cane as ambulatory aid) Psychiatric Treatment Plan - Problem List (1) Alcohol dependence Current Visit: No (2) Cocaine dependence Current Visit: No Qualifiers: Substance use status: uncomplicated Qualified Code(s): F14.20 - Cocaine dependence, uncomplicated (3) Cannabis dependence Current Visit: No (4) Nicotine dependence Current Visit: No Qualifiers: Nicotine product type: cigarettes Substance use status: uncomplicated Qualified Code(s): F17.210 - Nicotine dependence, cigarettes, uncomplicated (5) Substance induced mood disorder Current Visit: No (6) Substance-induced sleep disorder Current Visit: No (7) Arthritis of right hip Current Visit: No (8) Essential hypertension Current Visit: No (9) Hepatitis C Current Visit: No Qualifiers: Viral hepatitis chronicity: chronic Hepatic coma status: without hepatic coma Qualified Code(s): B18.2 - Chronic viral hepatitis C (10) History of atrial fibrillation Current Visit: No (11) History of bilateral inguinal hernia repair Current Visit: No (12) History of splenectomy Current Visit: No Initial treatment plan: Patient is discharged today and referred to [facility] for outpatient treatment
[2018-08-24] MEDS: amLODIPine BESYLATE 5 MG TABLET (FP) PO SCH (09:56)
[2018-08-24] MEDS: PRENATAL VITAMINS W/ FOLIC ACID TABLET (FP) PO SCH (09:56)
[2018-08-24] MEDS: LISINOPRIL 20 MG TABLET (FP) PO SCH (09:56)
[2018-08-24] MEDS: BACITRACIN 0.9 GM PACKET TP SCH (09:56)
== END 2018-08-24 10:15 | disposition home or self-care (01) | DRG 772 ==
LOC: YASAS 13:28 → Y5N 13:29
PROVIDERS: ADMIT Psychiatry & Neurology Psychiatry; ATTEND Psychiatry & Neurology Psychiatry
PROC: HZ42ZZZ Group Counseling for Substance Abuse Treatment, Cognitive-Behavioral (ICD-10-PCS; principal; 2018-08-12)
DX: F10.20 Alcohol dependence, uncomplicated (principal); F14.20 Cocaine dependence, uncomplicated; F12.20 Cannabis dependence, uncomplicated; F17.210 Nicotine dependence, cigarettes, uncomplicated; F19.282 Other psychoactive substance dependence with psychoactive substance-induced sleep disorder; F19.24 Other psychoactive substance dependence with psychoactive substance-induced mood disorder; I10 Essential (primary) hypertension; B18.2 Chronic viral hepatitis C; M13.851 Other specified arthritis, right hip; Z86.79 Personal history of other diseases of the circulatory system; Z98.890 Other specified postprocedural states; Z90.81 Acquired absence of spleen; R26.89 Other abnormalities of gait and mobility; Z99.89 Dependence on other enabling machines and devices; Z48.02 Encounter for removal of sutures